=== PATIENT | female | born 1945 | race Caucasian/White ===

== ENCOUNTER → 2018-06-09 11:28 | Outpatient (REF) | payer MEDICARE, SELFPAY ==
[2018-06-09 20:42] LABS: Anion Gap 8.8 mmol/L (3-11); BUN 15 mg/dL (7-18); CO2 29.2 mmol/L (21.0-32.0); CREATININE 0.94 mg/dL (0.55-1.02); Calcium 9.1 mg/dL (8.5-10.1); Chloride 103 mmol/L (98-107); Estimated GFR 58.05 (mL/min/1.73m2); Glucose 93 mg/dL (70-100); Sodium 141 mmol/L (136-145); TSH (W/Ref FT4) 1.83 uIU/mL (0.358-3.74)
== END ==
LOC: NCHCN 11:28
PROVIDERS: PCP Family Medicine; Visit Provider Family Medicine
DX: E03.9 Hypothyroidism, unspecified (principal); I10 Essential (primary) hypertension
CPT/HCPCS: 80048; 84443

== ENCOUNTER 2018-07-14 16:40 | Emergency (ER) | payer MEDICARE, SELFPAY ==
[2018-07-14] VITALS (32 sets, daily range): BP systolic 133–166; BP diastolic 59–85; PULSE 63–81; RESP 10–27; TEMP 36.6–37.1; O2SAT 92–99
--- NOTE | 2018-07-14 16:56 | DI.RAD_ITS ---
SYMPTOM/DIAGNOSIS: PALPITATIONS FRONTAL AND LATERAL CHEST: Comparison is made with 11/21/07. Heart size and pulmonary vasculature are within normal limits. The patient has a pectus excavatum deformity. There are increased lung markings in the lung bases medially. These may in part be due to the pectus deformity. The possibility of an infiltrate cannot be excluded. No effusions or pneumothoraces are identified. The preliminary radiology report questioned a 2.8 cm lesion in the right lung base. This may represent superimposition of soft tissue structures. Degenerative changes are seen in the spine. IMPRESSION: Basilar infiltrates seen medially. This may be related to the patient's pectus deformity. Basilar infiltrate cannot be excluded. Please see the above discussion for complete details.
[2018-07-14 17:32] LABS: Abs Immature Grans 0.01 k/cumm (0.0-0.09); Absolute Basophil Count 0.07 k/cumm (0.0-0.2); Absolute Eosinophil Count 0.25 k/cumm (0.0-0.7); Absolute Lymphocyte Count 2.15 k/cumm (1.2-3.4); Absolute Monocyte Count 0.78 k/cumm (0.11-0.7); Absolute Neutrophil Count 5.65 k/cumm (1.2-6.7); Basophils % 0.8; Eosinophils % 2.8; HCT 42.9 % (36.0-46.0); HGB 14.4 g/dL (12.0-15.5); Immature Grans % 0.1; Lymphocytes % 24.1; Mean Corp. HGB Concentration 33.6 g/dL (32.0-36.0); Mean Corpuscular Volume 89.4 fL (80-95); Monocytes % 8.8; Neutrophils % 63.4; Platelet Count 196 x1000/uL (130-400); RBC Distribution Width 14.2 % (11.7-14.6); White Blood Cell Count 8.91 k/cumm (4.4-10.8)
[2018-07-14 17:34] LABS: ALT 28 U/L (12-78); AST 22 U/L (15-37); Albumin 3.6 g/dL (3.4-5.0); Alkaline Phosphatase 82 U/L (46-116); Anion Gap 8.1 mmol/L (3-11); BUN 23 mg/dL (7-18); Bilirubin, Total 0.8 mg/dL (0.2-1.0); CO2 29.9 mmol/L (21.0-32.0); CREATININE 1.26 mg/dL (0.55-1.02); Calcium 8.8 mg/dL (8.5-10.1); Chloride 101 mmol/L (98-107); Glucose 101 mg/dL (70-100); Magnesium 2.1 mg/dL (1.8-2.4); Potassium 3.6 mmol/L (3.5-5.1); Sodium 139 mmol/L (136-145); Total Protein 7.5 g/dL (6.4-8.2)
[2018-07-14 17:45] LABS: Troponin I < 0.02 ng/mL (0.00-0.06)
[2018-07-14] MEDS: Aspirin 81 MG CHEW 324 MG CH (18:22)
--- NOTE | 2018-07-14 18:42 | DI.VRAD_ITS ---
EXAM: XR Chest, 2 Views CLINICAL HISTORY: 73 years old, female; Signs and symptoms; Other: Per pt felt heart racing; Patient HX: Per pt: [place] heart racing TECHNIQUE: Frontal and lateral views of the chest. COMPARISON: No relevant prior studies available. FINDINGS: Lungs: There are opacities along the heart borders bilaterally which could represent atelectasis or infection. A portion of the right lower lung opacities includes a rounded structure measuring 2.8 cm. This could represent superimposition of structures or a pulmonary lesion. A short term followup recommended. Pleural space: No pneumothorax. Heart: Cardiac shadow within normal limits. Mediastinum: Mediastinal contour is within normal limits. Bones/joints: Skeletal degenerative changes. Upper abdomen: Surgical clips in the right upper quadrant of the abdomen. Other findings: If symptoms remain concerning, consider alternative imaging modalities. IMPRESSION: 1. There are opacities along the heart borders bilaterally which could represent atelectasis or infection. A portion of the right lower lung opacities includes a vague rounded structure measuring 2.8 cm. This could represent superimposition of structures or a pulmonary lesion. Short term followup recommended. 2. Other findings as above. Dictated and Authenticated by: Venessa Loja MD. Ordering:FAY ARGUELLO MD
--- NOTE | 2018-07-14 19:33 | W.ED.GENAD ---
Discharge Plan Disposition Patient Disposition: HOME Condition: Good Discharge Details Chief Complaint: Palpitatns Clinical Impression: Heart palpitations, Lesion of lung Primary Care Provider: Le Thompson ED Provider: Lamine Mcnair Home Meds and New Rx's Prescriptions: No Action fluticasone-salmeterol [Advair Diskus] 1 EACH blister with device 1 puff Inhalation DAILY RF: 0 aspirin [Aspir-81] 81 MG tablet,delayed release (DR/EC) 1 tab PO DAILY RF: 0 levothyroxine [Synthroid] 100 MCG tablet 100 mcg PO DAILY RF: 0 simvastatin 20 MG tablet 20 mg PO DAILY RF: 0 omeprazole 20 MG capsule,delayed release(DR/EC) 20 mg PO DAILY RF: 0 metoprolol tartrate 25 MG tablet 50 mg PO BID RF: 0 cholecalciferol (vitamin D3) 1,000 UNITS tablet 1 tab PO DAILY RF: 0 Xb-H4-bjg-edon-thg-smnf-bor 1 EACH tablet 1,000 mg PO BID RF: 0 sertraline 25 mg Tablet 1 tab PO DAILY RF: 0 Discharge Instructions Instructions: Palpitations (ED) Additional Instructions: Please follow-up on for your scheduled appointment for your Holter monitor. Please follow-up with your primary care provider for reevaluation of the chest lesion noted on x-ray. If you notice any return of your symptoms or any worsening of your symptoms, please return immediately to the emergency department. He noticed any chest pain, arm pain, shortness of breath please return immediately. If you notice any worsening of your symptoms, or any new symptoms such as vomiting, diarrhea, fever, chills, shortness of breath, chest pain, numbness, weakness, or fainting , please return immediately to the emergency department for reevaluation. Please follow up with your primary care provider as soon as possible for reassessment and reevaluation. As always, it was a pleasure participating in your medical care today. Referrals: Le Thompson MD [Primary Care Provider] - Discharge Data Discharge Date/Time-TO BE ENTERED AT DEPARTURE: 07/14/18 19:57 Medical Decision Making This is a 73-year-old female with a past medical history of hypertension, high cholesterol, who is scheduled to have a Holter monitor placed in 3 days. She presents today for palpitations. It lasted 1 minute. It occurred 1 hour prior to arrival. She had associated burning in her left arm which resolved immediately upon the resolution of the palpitations. She has no other associated chest pain, chest heaviness, arm pain, or neck pain. Physical exam demonstrates no significant abnormalities. Patient's laboratory workup demonstrates no acute abnormalities. Patient EKG demonstrates sinus rhythm with no significant arrhythmia or abnormality. Patient's chest x-ray readings per virtual radiology demonstrate there are opacities along the heart borders bilaterally which could represent atelectasis or infection. A portion of the right lower lung opacities include a vague rounded structure measuring 2.8 cm. This could represent superimposition of structures or a pulmonary lesion. Short-term follow-up recommended.Patient's chest x-ray does demonstrate atelectasis, however per on reevaluation the patient denies any cough, fever, or chills and demonstrates no ask Duane abnormalities. I do feel that her symptoms are inconsistent with infection. During a prolonged observation period here in the emergency department she continued to demonstrate no evidence of palpitations, or arrhythmia. With a normal workup, I feel that she can be safely discharged home with close follow-up with her PCP and the administration of her scheduled security monitor later this week. I discussed with her the potential superimposed structure versus coronary lesion, and the need for follow-up and the patient understands. We discussed red flags for which to return the patient understands. I have extensively reviewed the treatment plan and discharge instructions with the patient and their family. I have addressed all patient concerns at this time. The patient and family was made aware of what symptoms to monitor for that would warrant a return to the emergency department. Discussed the plan with the patient and family, they demonstrate verbal understanding and agreement with our assessment and plan at this time. EKG 16: 49 Rate 80, intervals normal, sinus rhythm, no significant ST elevations or depressions. No Q waves. Inverted T wave in V1. No other abnormality HPI General Date/Time Provider Initiated Documentation: 07/14/18 16:54. HPI Narrative: This is a 73-year-old female with a past medical history of palpitations, hyperlipidemia, hypertension, who presents today for palpitations. The patient states that 1 hour prior to arrival she had symptoms of palpitations. It lasted for 1 minute total. She had an associated burning in her left arm during that period. She had fatigue all day, but denies any chest pain, arm pain, neck pain or shoulder pain. She denies any heavy sensation on her chest. Her symptoms completely resolved after that 1 minute episode, she came to the ER for further evaluation. She has a scheduled Holter monitor that is to be placed in 3 days. The patient denies any syncope, headache, exertional dyspnea, or other complaints. She is on metoprolol. She denies any other complaints at this time. She denies any recent pertinent surgeries, pertinent family history, or IV or illicit drug use. Related Data Home Medications Medication Instructions Recorded Confirmed Ae-F3-ujn-nlcc-gfr-cwib-bor 1,000 mg PO BID 03/31/17 07/14/18 aspirin [Aspir-81] 1 tab PO DAILY 03/31/17 07/14/18 cholecalciferol (vitamin D3) 1 tab PO DAILY 03/31/17 07/14/18 fluticasone-salmeterol [Advair 1 puff INHALATION DAILY 03/31/17 07/14/18 Diskus] levothyroxine [Synthroid] 100 mcg PO DAILY 03/31/17 07/14/18 metoprolol tartrate 50 mg PO BID 03/31/17 07/14/18 omeprazole 20 mg PO DAILY 03/31/17 07/14/18 simvastatin 20 mg PO DAILY 03/31/17 07/14/18 sertraline 1 tab PO DAILY 07/14/18 07/14/18 Allergies Allergy/AdvReac Type Severity Reaction Status Date / Time sulfamethoxazole AdvReac Intermediate Skin Rash Unverified 07/14/18 16:53 [From Bactrim] trimethoprim [From Bactrim] AdvReac Intermediate Skin Rash Unverified 07/14/18 16:53 codeine AdvReac Mild Nausea Unverified 07/14/18 16:53 General Stated Complaint: Palpitatns GENEVIEVE: 3 Review of Systems Review of Systems All systems reviewed & are unremarkable except as noted in HPI and below PFSH Social History Smoking/Tobacco Use Status: Never Exam Narrative Exam Narrative: 1.Const: Well-nourished, Well-developed, appearing stated age 2.Eyes: PERRL, no conjunctival injection, and symmetrical lids. 3.ENT: Atraumatic external nose and ears. Moist MM. Neck: Symmetric, trachea midline, No thyromegaly. 4.CVS: +S1/S2, No murmurs or gallops. No irregularities. Peripheral pulses 2+ and equal in all extremities. Brisk capillary refill in all extremities. 5.RESP: Unlabored respiratory effort. Clear to auscultation bilaterally. No wheezes rales or rhonchi 6.GI: Soft, Nontender/Nondistended, No hepatosplenomegaly. No guarding or rebound. 7.MSK: Normocephalic/Atraumatic, Extremities w/o deformity or ttp No cyanosis or clubbing, Normal movement of all extremities 8.Skin: Warm, Dry. No rashes or lesions. 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 Sensation grossly intact, no focal neurologic deficits. 10.Psych: (AAO) x3. Appropriate mood and affect Course Vital Signs Temperature 36.6 C 07/14/18 16:51 Pulse 79 07/14/18 16:51 Respiratory Rate 14 07/14/18 16:51 Blood Pressure 166/70 H 07/14/18 16:51 Pulse Oximetry 99 07/14/18 16:51 Temperature 36.6 C 07/14/18 16:51 Temperature Source Temporal Artery Scan 07/14/18 16:51 Pulse 79 07/14/18 16:51 Respiratory Rate 14 07/14/18 16:51 Respiratory Effort 07/14/18 16:55 Blood Pressure 166/70 H 07/14/18 16:51 Pulse Oximetry 99 07/14/18 16:51 Oxygen Delivery Method Room Air 07/14/18 16:51 Oxygen Flow Rate 0 07/14/18 16:51 Pain Level 0 07/14/18 16:51 Lab/Test Results Lab/Test Results: Laboratory Tests Range/Units 07/14/18 07/14/18 07/14/18 16:50 16:50 16:50 WBC (4.4-10.8) k/cumm 8.91 RBC (4.00-5.20) m/cumm 4.80 Hgb (12.0-15.5) g/dL 14.4 Hct (36.0-46.0) % 42.9 MCV (80-95) fL 89.4 MCH (27.0-33.0) pg 30.0 MCHC (32.0-36.0) g/dL 33.6 RDW (11.7-14.6) % 14.2 Plt Count (130-400) x1000/uL 196 MPV (8.0-11.0) fL 12.0 H Immature Gran % 0.1 Neutrophils % 63.4 Lymphocytes % 24.1 Monocytes % 8.8 Eosinophils % 2.8 Basophils % 0.8 Absolute Neutrophils (1.2-6.7) k/cumm 5.65 Absolute Lymphocytes (1.2-3.4) k/cumm 2.15 Absolute Monocytes (0.11-0.7) k/cumm 0.78 H Absolute Eosinophils (0.0-0.7) k/cumm 0.25 Absolute Basophils (0.0-0.2) k/cumm 0.07 Sodium (136-145) mmol/L 139 Potassium (3.5-5.1) mmol/L 3.6 Chloride (98-107) mmol/L 101 Carbon Dioxide (21.0-32.0) mmol/L 29.9 Anion Gap (3-11) mmol/L 8.1 BUN (7-18) mg/dL 23 H Creatinine (0.55-1.02) mg/dL 1.26 H Estimated GFR/1.73 m2 (mL/min/1.73m2) 41.40 Glucose (70-100) mg/dL 101 H Calcium (8.5-10.1) mg/dL 8.8 Magnesium (1.8-2.4) mg/dL 2.1 Total Bilirubin (0.2-1.0) mg/dL 0.8 AST (15-37) U/L 22 ALT (12-78) U/L 28 Alkaline Phosphatase (46-116) U/L 82 Troponin I (0.00-0.06) ng/mL < 0.02 Total Protein (6.4-8.2) g/dL 7.5 Albumin (3.4-5.0) g/dL 3.6 TSH (0.358-3.74) uIU/mL 1.30
== END 2018-07-14 19:57 | disposition home or self-care (01) ==
PROVIDERS: Emergency Provider Student in an Organized Health Care Education/Training Program; PCP Family Medicine
DX: R00.2 Palpitations (principal); R91.8 Other nonspecific abnormal finding of lung field; I10 Essential (primary) hypertension
CPT/HCPCS: 36415; 80053; 93005; 99285; 71046; 83735; 84443; 84484; 85025; 93010; 99284

== ENCOUNTER 2018-07-17 02:42 | Outpatient (CLI) | payer MEDICARE, SELFPAY | END 2018-07-17 03:02 | PROVIDERS: PCP Family Medicine; Visit Provider Family Medicine | DX: R00.2 Palpitations (principal); I49.1 Atrial premature depolarization; I49.3 Ventricular premature depolarization | CPT/HCPCS: 93225 ==

== ENCOUNTER 2018-07-21 14:49 | Outpatient (CLI) | payer MEDICARE, SELFPAY ==
--- NOTE | 2018-07-23 17:39 | HOLTER_ITS ---
Date of dictation: July 23, 2018 Date of recording: July 17, 2018 Date of analysis: July 21, 2018 Referral: Le Thompson M.D. Indication: Palpitations. Findings: 1. Baseline sinus rhythm, 52-111 bpm, average 65 bpm. 2. Rare PAC, 14/2 days, 1 3-beat SVT run at 130 bpm. 3. Rare PVC, 5/2 days, no VT. 4. No pauses. 5. No symptoms recorded.
== END 2018-07-21 15:09 ==
PROVIDERS: PCP Family Medicine; Visit Provider Family Medicine
DX: R00.2 Palpitations (principal); I49.1 Atrial premature depolarization; I49.3 Ventricular premature depolarization
CPT/HCPCS: 93226

== ENCOUNTER 2018-07-23 12:34 | Outpatient (CLI) | payer MEDICARE, SELFPAY | END 2018-07-23 12:54 | PROVIDERS: PCP Family Medicine; Visit Provider Internal Medicine Cardiovascular Disease | DX: R00.2 Palpitations (principal); I49.1 Atrial premature depolarization; I49.3 Ventricular premature depolarization | CPT/HCPCS: 93227 ==

== ENCOUNTER 2018-09-01 00:57 | Outpatient (CLI) | payer MEDICARE, SELFPAY ==
--- NOTE | 2018-09-01 09:30 | DI.RAD_ITS ---
SYMPTOM/DIAGNOSIS: LUNG NODULE R91.8 CHEST X-RAY: PA, lateral. Comparison 07/14/18. Heart size and pulmonary vasculature are within normal limits. The right lung base appears to have cleared. No infiltrates are seen. No pulmonary nodules are identified. No pleural effusion or pneumothorax is present. Degenerative changes are seen in the spine. There are surgical clips again seen in the right upper quadrant of the abdomen. IMPRESSION: No acute pulmonary process. No evidence of a pulmonary nodule.
== END 2018-09-01 01:17 ==
PROVIDERS: PCP Family Medicine; Visit Provider Family Medicine
DX: R91.8 Other nonspecific abnormal finding of lung field (principal)
CPT/HCPCS: 71046

== ENCOUNTER 2018-09-15 18:32 | Outpatient (REF) | payer MEDICARE, SELFPAY ==
--- NOTE | 2018-09-15 12:06 | SKI_PTH ---
PATIENT: Mary Trevino LOC: [facility] U#:[id number] AGE/SX: 73/F ROOM: RE09/15/[address]: Camilo Peterson DO : 1945 BED: DIS: 09/15/2018 SPEC #: [id number] RECD: 09/15/18 18:50 STATUS: CANDIDA REQ #: [id number] SHANIQUE: 09/15/18 12:[address]: Camilo Peterson DEPT: Surgical Specimen RECD BY: Amairani Colvin ENTERED: 09/15/18 18:50 SP TYPE: SKI OTHR DR: Le Thompson Tissues: 1 - SKIN BIOPSY(SHAVE/PUNCH) Procedures: SKIN LEVEL 4 Comments: [id number]
== END 2018-09-15 18:52 ==
LOC: LBN 18:32
PROVIDERS: PCP Family Medicine; Visit Provider Otolaryngology Otolaryngology/Facial Plastic Surgery
DX: L91.8 Other hypertrophic disorders of the skin (principal); L82.1 Other seborrheic keratosis
CPT/HCPCS: 88305

== ENCOUNTER 2018-10-22 00:30 | Outpatient (CLI) | payer MEDICARE, SELFPAY ==
--- NOTE | 2018-10-22 10:50 | DI.MAMMO_ITS ---
SYMPTOMS/DIAGNOSIS: SCREENING, Z12.31 MAMMOGRAM: Mammograms were interpreted according to the usual protocol including computer analysis with CAD system, tomosynthesis and C view imaging. Comparison is made with exams from 2013 through 2018. The breasts are composed of heterogeneously dense fibroglandular tissue, breast density Category C. No suspicious masses or suspicious microcalcifications are visible. There has been no significant change. IMPRESSION: Category I C, negative mammogram. Yearly screening mammography is recommended. [facility] ASSESSMENT OF FINDINGS: Negative. Category 1. Patient will receive a letter notifying them of these results. Bi-RADS category C. The breasts are heterogeneously dense, which may obscure small masses.
== END 2018-10-22 00:50 ==
PROVIDERS: PCP Family Medicine; Visit Provider Family Medicine
DX: Z12.31 Encounter for screening mammogram for malignant neoplasm of breast (principal)
CPT/HCPCS: 77063; 77067

== ENCOUNTER 2019-01-28 15:38 | Outpatient (REF) | payer MEDICARE, SELFPAY ==
[2019-01-28 20:04] LABS: Anion Gap 7.4 mmol/L (3-11); BUN 16 mg/dL (7-18); CO2 30.6 mmol/L (21.0-32.0); CREATININE 0.94 mg/dL (0.55-1.02); Calcium 9.5 mg/dL (8.5-10.1); Chloride 100 mmol/L (98-107); Estimated GFR 58.05 (mL/min/1.73m2); Glucose 99 mg/dL (70-100); Potassium 4.5 mmol/L (3.5-5.1); Sodium 138 mmol/L (136-145)
[2019-01-28 20:35] LABS: Hemoglobin A1C 6.1 % (4.5-6.2)
== END 2019-01-28 15:58 ==
LOC: NCHCN 15:38
PROVIDERS: PCP Family Medicine; Visit Provider Family Medicine
DX: I10 Essential (primary) hypertension (principal); R73.9 Hyperglycemia, unspecified
CPT/HCPCS: 80048; 83036

== ENCOUNTER 2019-05-27 12:58 | Outpatient (CLI) | payer MEDICARE, SELFPAY ==
--- NOTE | 2019-05-27 13:21 | DI.RAD_ITS ---
SYMPTOM/DIAGNOSIS: RT FOOT PAIN M79.671, RT 1ST MTP PAIN RIGHT FOOT: There is severe degenerative changes of the first MTP joint, worsened when compared with the previous exam. There is mild hallux valgus. The remaining MTP joints are unremarkable. There is spurring at the Achilles insertion on the calcaneus as well as a tiny plantar calcaneal spur. 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
--- NOTE | 2019-05-27 13:21 | DI.RAD_ITS ---
SYMPTOM/DIAGNOSIS: LOW BACK PAIN, M54.5 LUMBAR SPINE: The vertebral bodies are well maintained in height. There are end plate osteophytes throughout. There is narrowing of the L5-S1 disc space. There is slight narrowing of the L4-5 disc space. The remaining disc spaces are well maintained. No spondylolysis or spondylolisthesis is seen. There is calcification in the abdominal aorta which appears normal in diameter. Surgical clips are seen in the right upper quadrant. There is spurring at both S-I joints. IMPRESSION: Degenerative changes, greatest at L5-S1.
== END 2019-05-27 13:18 ==
PROVIDERS: PCP Family Medicine; Visit Provider Family Medicine
DX: M79.671 Pain in right foot (principal); M19.071 Primary osteoarthritis, right ankle and foot; M77.31 Calcaneal spur, right foot; M20.11 Hallux valgus (acquired), right foot; M54.5 Low back pain; M51.36 Other intervertebral disc degeneration, lumbar region; M53.3 Sacrococcygeal disorders, not elsewhere classified
CPT/HCPCS: 72110; 73630

== ENCOUNTER 2019-07-27 08:28 | Outpatient (CLI) | payer MEDICARE, SELFPAY ==
[2019-07-27 15:04] LABS: Hemoglobin A1C 5.9 % (4.5-6.2)
[2019-07-27 15:05] LABS: Anion Gap 14.3 mmol/L (3-11); BUN 16 mg/dL (7-18); CO2 21.7 mmol/L (21.0-32.0); CREATININE 0.95 mg/dL (0.55-1.02); Calcium 8.8 mg/dL (8.5-10.1); Chloride 105 mmol/L (98-107); Estimated GFR 57.19 (mL/min/1.73m2); Glucose 90 mg/dL (70-100); Potassium 4.7 mmol/L (3.5-5.1); Sodium 141 mmol/L (136-145); TSH (W/Ref FT4) 2.68 uIU/mL (0.36-3.74)
== END 2019-07-27 08:48 ==
PROVIDERS: PCP Family Medicine; Visit Provider Family Medicine
DX: E03.9 Hypothyroidism, unspecified (principal); I10 Essential (primary) hypertension; R73.9 Hyperglycemia, unspecified
CPT/HCPCS: 80048; 83036; 84443

== ENCOUNTER 2019-09-10 13:21 | Outpatient (CLI) | payer MEDICARE, SELFPAY ==
[2019-09-10 15:21] LABS: Vitamin D 25 Total 69.8 ng/ml (30-100)
[2019-09-10 15:26] LABS: Vitamin B12 707 pg/mL (193-986)
== END 2019-09-10 13:41 ==
PROVIDERS: PCP Family Medicine; Visit Provider Internal Medicine Sleep Medicine
DX: E55.9 Vitamin D deficiency, unspecified (principal); R53.83 Other fatigue
CPT/HCPCS: 36415; 82306; 82607

== ENCOUNTER 2020-06-06 14:08 | Outpatient (REF) | payer MEDICARE, SELFPAY ==
--- NOTE | 2020-06-06 13:22 | SKI_PTH ---
PATIENT: Mary Trevino LOC: [facility] U#:[id number] AGE/SX: 75/F ROOM: RE06/06/[address]: MAMADOU Guevara : 1945 BED: DIS: 06/06/2020 SPEC #: [id number] RECD: 06/07/20 12:05 STATUS: CANDIDA REPawan #: [id number] SHANIQUE: 06/06/20 13:[address]: Mynor Awan DEPT: Surgical Specimen RECD BY: Amairani Colvin ENTERED: 06/07/20 12:06 SP TYPE: SKI OTHR DR: Le Thompson Tissues: 1 - SKIN BIOPSY(SHAVE/PUNCH) Procedures: SKIN LEVEL 4 Comments: [id number]
== END 2020-06-06 14:28 ==
LOC: LBN 14:08
PROVIDERS: PCP Family Medicine; Visit Provider Physician Assistant
DX: L82.0 Inflamed seborrheic keratosis (principal)
CPT/HCPCS: 88305

== ENCOUNTER 2020-08-01 09:04 | Outpatient (REF) | payer MEDICARE, SELFPAY ==
[2020-08-01 18:40] LABS: HCT 42.4 % (36.0-46.0); HGB 14.1 g/dL (11.2-15.7); MCH 30.1 pg (27.0-33.0); MCHC 33.3 % (32.0-36.0); MCV 90.4 fL (80-95); MPV 12.5 fL (8.0-11.0); Platelet Count 206 10^3/uL (130-400); RBC 4.69 10^6/uL (3.93-5.22); RDW 13.9 % (11.7-14.6); RDW-SD 45.9 fL; WBC 5.87 10^3/uL (4.4-10.8)
[2020-08-01 19:01] LABS: Anion Gap 7.2 mmol/L (3-11); BUN 12 mg/dL (7-18); CO2 30.8 mmol/L (21.0-32.0); CREATININE 0.97 mg/dL (0.55-1.02); Chloride 102 mmol/L (98-107); Estimated GFR 55.69 (mL/min/1.73m2); Ferritin 120 ng/mL (8-252); Glucose 82 mg/dL (74-106); Potassium 4.3 mmol/L (3.5-5.1); Sodium 140 mmol/L (136-145)
== END 2020-08-01 09:24 ==
LOC: NCHCN 09:04
PROVIDERS: PCP Family Medicine; Visit Provider Family Medicine
DX: I10 Essential (primary) hypertension (principal); R73.03 Prediabetes; E78.5 Hyperlipidemia, unspecified; N18.9 Chronic kidney disease, unspecified; E03.9 Hypothyroidism, unspecified
CPT/HCPCS: 80048; 85027; 82728; 84443

== ENCOUNTER 2020-08-30 01:09 | Outpatient (CLI) | payer MEDICARE, SELFPAY ==
--- NOTE | 2020-08-30 | DI.MAMMO_ITS ---
EXAM: MG MAMMO SCREENING CLINICAL HISTORY: SCREENING,Z12.31 TECHNIQUE: Bilateral full field digital CC and MLO mammographic images were obtained with 3D tomosyn thesis and utilizing computer aided detection (CAD). COMPARISON: Available for comparison. FINDINGS: Masses/Architectural Distortion: None seen. Microcalcifications: No suspicious pleomorphic-type are seen. Skin Thickening/Nipple Retraction: None. IMPRESSION: 1. No significant interval change with no specific features of malignancy noted. 2. Unless there is more urgent need, screening mammography is recommended, as per [employer] guidelines. BI-RADS Category 1 - Negative Breast Density - Category C - Heterogeneously dense The mammogram demonstrates the patient's breast tissue is dense. Dense breast tissue is very common a nd is not abnormal but dense breast tissue can make it harder to find cancer on a mammogram. Also, de nse breast tissue may increase their breast cancer risk. This information about the result of the [facility] mogram report was provided to the patient to raise their awareness. Use this report when you speak wi th the patient about their risks for breast cancer, which includes their family history. At that time , you may recommend for more screening tests (Ultrasound or MRI) as they might be useful based on the ir risk. A negative radiographic report should not delay biopsy if a dominant or clinically suspicious mass is present. Up to ten percent of cancers are not identified on mammography. A negative report may reinforce clinical impression. Adenosis and dense breasts may obscure an underlying neoplasm. False positive reports average 6 to 10%. Patient will receive a letter notifying them of these results.
== END 2020-08-30 01:29 ==
PROVIDERS: PCP Family Medicine; Visit Provider Family Medicine
DX: Z12.31 Encounter for screening mammogram for malignant neoplasm of breast (principal)
CPT/HCPCS: 77063; 77067

== ENCOUNTER 2021-01-23 06:48 | Day surgery (SDC) | payer MEDICARE, SELFPAY ==
[2021-01-23 06:50] VITALS: BP 177/81; PULSE 68; RESP 16; TEMP 36; O2SAT 98
[2021-01-23] MEDS: Tropicam./Phenyleph. (1/2.5%) 5 ML BTL OS ×3 (07:19→07:31)
[2021-01-23] MEDS: Lidocaine 2% Jelly 6 ML SYR (08:13)
[2021-01-23] MEDS: Povidone-Iodine Ophth 30 ML BTL (08:14)
[2021-01-23] MEDS: Lidocaine 1% Pres-Free 5 ML VIAL (08:20)
[2021-01-23] MEDS: Trypan Blue 0.06% 0.5 ML SYR (08:20)
[2021-01-23] MEDS: Balanced Salt Soln.-PLUS 500 ML BAG (08:23)
[2021-01-23] MEDS: Duovisc Viscoelastic System EACH 1 EACH (08:23)
[2021-01-23] MEDS: Tetracaine 0.5% 4 ML BTL OS (08:23)
--- NOTE | 2021-01-23 08:43 | PDOC.DSDIS_ITS ---
Discharge Plan Disposition Patient Disposition: HOME Condition: Good Discharge Details Attending Provider: Conner Interiano Primary Care Provider: Le Thompson Home Meds and New Rx's Prescriptions: No Action fluticasone propion-salmeterol [Advair Diskus] 1 EACH blister with device 1 puff Inhalation DAILY RF: 0 aspirin [Aspir-81] 81 MG tablet,delayed release (DR/EC) 1 tab PO DAILY RF: 0 levothyroxine [Synthroid] 100 MCG tablet 100 mcg PO DAILY RF: 0 simvastatin 20 MG tablet 20 mg PO DAILY RF: 0 omeprazole 20 MG capsule,delayed release(DR/EC) 20 mg PO DAILY RF: 0 metoprolol tartrate 25 MG tablet 50 mg PO BID RF: 0 cholecalciferol (vitamin D3) 1,000 UNITS tablet 1 tab PO DAILY RF: 0 sertraline 25 mg Tablet 1 tab PO DAILY RF: 0 famotidine 40 mg Tablet 40 mg PO DAILY RF: 0 magnesium 250 mg Tablet 250 mg PO DAILY RF: 0 fluticasone propionate 50 mcg/actuation [place],Suspension 1 spray INTRANASAL DAILY RF: 0 Discharge Instructions Stand Alone Forms: Post-op Topical Cataract, Iris Mays (DSU) Discharge Orders Discharge Orders: Discharge Order (Routine); Ordered 01/23/21 Ordered By: Conner Interiano DS: Diagnosis Discharge Diagnosis (1) Cortical cataract of left eye: Status: Resolved (2) Nuclear sclerotic cataract of left eye: Status: Resolved
--- NOTE | 2021-01-23 08:44 | ROE_ITS ---
Date of service: 01/23/21 Time of Service: 08:50 Operative Note Operative Note DATE OF PROCEDURE: 01/23/21 PRE-OP DIAGNOSIS: Nuclear/cortical cataract, left eye POST-OP DIAGNOSIS: same PROCEDURE: Cataract extraction using phacoemulsification with intraocular lens implant, left eye, using capsular staining with Vision Blue SURGEON: Conner Interiano ANESTHESIA TYPE: Local By Surgeon and MAC Refer to Anesthesia Record COMPLICATIONS: None Patient was transported to: same day Patient's condition: stable Implants: [employer] / [employer] Tecnis [id number] Indications: Progressive decreased vision due to cataract, left eye, with poor red reflex Procedure Description: CATARACT SURGERY OPERATIVE REPORT PREOPERATIVE DIAGNOSIS: 1. Nuclear/cortical cataract, left eye 2. Poor red reflex secondary to #1 POSTOPERATIVE DIAGNOSIS: Same OPERATION: 1. Cataract extraction using phacoemulsification with posterior chamber intraocular lens implant, left eye. 2. Capsular staining with Vision Blue IOL: IOL [employer]/Model: Tan & Tan / KARLI Tecnis [id number] IOL Power: + 15.5 diopters IOL Serial Number: [id number] Optic Diameter: 6.0 mm Haptic/Overall Diameter: 13.0 mm PHACO INFO: [employer] Vision System with OZil and Active Fluidics Cumulative Dispersed Energy (CDE): 9.08 seconds SURGEON: Conner Interiano MD, TA ANESTHESIA: Monitored [facility] (MAC), with local sub-tenon's anesthetic infiltration COMPLICATIONS: None SPECIMENS: None INDICATIONS FOR PROCEDURE: Patient is a 75-year-old lady with history of diminished visual acuity in her left eye. She is noted to have a significant nuclear and cortical cataract of the left eye. The option of cataract surgery was offered to the patient and she wished to proceed. PROCEDURE: The correct surgical eye was identified and marked as the left eye and the pupil was dilated in the preoperative area using mydriatics and cycloplegics. The dilated pupil size was 8.0 mm. Oral sedation was administered in the form of an Imprimis MKO Melt (midazolam 3mg/ketamine 25mg/ondansetron 2mg). The patient was brought to the operating room where cardiopulmonary monitoring was instituted and surgical time-out was performed, confirming the correct operative eye and IOL power. Topical anesthesia was administered and ophthalmic povidone-iodine 5% was instilled into the conjunctival fornices. Lidocaine gel was applied to the cornea and the adelina-ocular area was prepped with Betadine 10% solution and draped in the usual sterile fashion for intraocular surgery, including an aperture drape. A Tegaderm transparent film dressing was cut in half and used to cover the lashes and lid margins. Care was taken to sequester the lashes and lid margins under the Tegaderm dressing. A lid speculum was placed between the lids of the operative eye and the Jeffrey-Aditi operating microscope was maneuvered into position. Nader scissors were then used to make a conjunctival buttonhole approximately 6mm posterior to the limbus in the inferonasal quadrant. Blunt dissection was carried out to expose bare sclera, and a blunt-tipped sub-tenon?s anesthesia cannula was introduced and passed posteriorly along the globe where non- preserved plain lidocaine was injected into posterior sub-Tenon?s space. A sideport knife was used to make a paracentesis port superiorly/superiortemporally. Intraocular phenylephrine/lidocaine was injected int the anterior chamber.. Air was then injected into the anterior chamber, followed by Vision Blue, which was painted over the anterior capsule and then irrigated out using BSS. The anterior chamber was filled with viscoelastic. A 2.4mm keratome knife was used to create a half-thickness groove at the limbus and then to construct a three-plane near-clear corneal tunnel extending 2.0mm into clear cornea at the 3:00 position. A flap was raised on the anterior capsule and capsulorhexis forceps were used to complete a continuous curvilinear capsulorhexis of 5.5 mm. Balanced salt solution was then used to perform cortical cleaving hydrodissection and nuclear hydrodelineation until the lens could be freely rotated within the capsular bag. The lens nucleus was then disassembled and removed within the capsular bag and iris plane using phacoemulsification. Residual cortical material was removed using the 45-degree angled silicone I/A tip with 0.3mm port. The posterior capsule was carefully polished to remove as much residual lens epithelial cells as safely possible. The capsular bag was then inflated and the anterior chamber deepened with viscoelastic. The lens implant described above was inserted into the capsular bag using the KARLI [employer] Injector. A Kuglen hook was used to dial the IOL into position. Residual viscoelastic was then removed first from posterior to the IOL, then from the anterior chamber using the I/A handpiece. The lens implant was noted to center nicely within the capsular bag. The incisions were stromally hydrated, and the anterior chamber was reformed using BSS. Then 0.5cc of moxifloxacin 1.0mg/ml were injected into the capsular bag and anterior chamber. The incisions were checked with a Weck spear and found to be secure. Several drops of ophthalmic povidone-iodine 5% were then applied to the eye followed by two drops of Imprimis combination prednisolone/moxifloxacin/nepafenac solution. The drapes were removed and a clear plastic protective eye shield was placed over the eye. The patient was then returned to [facility] Surgery in stable condition.
[2021-01-23 09:14] VITALS: BP 121/81; PULSE 61; RESP 16; TEMP 36.3; O2SAT 95
== END 2021-01-23 09:25 | disposition home or self-care (01) ==
PROVIDERS: PCP Family Medicine; Visit Provider Ophthalmology
PROC: (CPT 66982; principal; 2021-01-23 08:30)
DX: H25.12 Age-related nuclear cataract, left eye (principal); H25.012 Cortical age-related cataract, left eye; I10 Essential (primary) hypertension
CPT/HCPCS: 66982; V2632

== ENCOUNTER 2021-02-06 07:54 | Day surgery (SDC) | payer MEDICARE, SELFPAY ==
[2021-02-06 08:22] VITALS: BP 157/83; PULSE 63; RESP 18; TEMP 36; O2SAT 100
[2021-02-06] MEDS: Tetracaine 0.5% 4 ML BTL OD (09:56)
[2021-02-06] MEDS: Balanced Salt Soln.-PLUS 500 ML BAG (09:56)
[2021-02-06] MEDS: Lidocaine 1% Pres-Free 5 ML VIAL (09:57)
[2021-02-06] MEDS: Duovisc Viscoelastic System EACH 1 EACH (09:57)
[2021-02-06] MEDS: Lidocaine 2% Jelly 6 ML SYR (09:58)
[2021-02-06] MEDS: Povidone-Iodine Ophth 30 ML BTL (09:59)
--- NOTE | 2021-02-06 10:15 | PDOC.DSDIS_ITS ---
Discharge Plan Disposition Patient Disposition: HOME Condition: Good Discharge Details Attending Provider: Conner Interiano Primary Care Provider: Le Thompson Home Meds and New Rx's Prescriptions: No Action fluticasone propion-salmeterol [Advair Diskus] 1 EACH blister with device 1 puff Inhalation DAILY RF: 0 aspirin [Aspir-81] 81 MG tablet,delayed release (DR/EC) 1 tab PO DAILY RF: 0 levothyroxine [Synthroid] 100 MCG tablet 100 mcg PO DAILY RF: 0 simvastatin 20 MG tablet 20 mg PO DAILY RF: 0 omeprazole 20 MG capsule,delayed release(DR/EC) 20 mg PO DAILY RF: 0 metoprolol tartrate 25 MG tablet 50 mg PO BID RF: 0 cholecalciferol (vitamin D3) 1,000 UNITS tablet 1 tab PO DAILY RF: 0 sertraline 25 mg Tablet 1 tab PO DAILY RF: 0 famotidine 40 mg Tablet 40 mg PO DAILY RF: 0 magnesium 250 mg Tablet 250 mg PO DAILY RF: 0 fluticasone propionate 50 mcg/actuation [place],Suspension 1 spray INTRANASAL DAILY RF: 0 Discharge Instructions Stand Alone Forms: Post-op Topical Cataract, Iris Mays (DSU) Discharge Orders Discharge Orders: Discharge Order (Routine); Ordered 02/06/21 Ordered By: Conner Interiano DS: Diagnosis Discharge Diagnosis (1) Nuclear sclerotic cataract of right eye: Status: Resolved (2) Cortical cataract of right eye: Status: Resolved
--- NOTE | 2021-02-06 10:16 | W.PM.OP ---
Date of service: 02/06/21 Time of Service: 10:16 Operative Note Operative Note DATE OF PROCEDURE: 02/06/21 PRE-OP DIAGNOSIS: Nuclear/cortical cataract, right eye POST-OP DIAGNOSIS: same PROCEDURE: Cataract extraction using phacoemulsification with intraocular lens implant, right eye SURGEON: Conner Interiano ANESTHESIA TYPE: Local By Surgeon and MAC Refer to Anesthesia Record ESTIMATED BLOOD LOSS: 0 PATHOLOGY: none sent COMPLICATIONS: None Patient was transported to: same day Patient's condition: stable Implants: [employer] / [employer] Tecnis [id number] intraocular lens Indications: Progressive decreased vision due to cataract, right eye Procedure Description: CATARACT SURGERY OPERATIVE REPORT PREOPERATIVE DIAGNOSIS: Nuclear/cortical cataract, right eye POSTOPERATIVE DIAGNOSIS: Same OPERATION: Cataract extraction using phacoemulsification with posterior chamber intraocular lens implant, right eye. IOL: IOL Nursing Clinical Director/Model: [employer] / KARLI Tecnis ZCB00 IOL Power: + 15.5 diopters IOL Serial Number: [id number] Optic Diameter: 6.0mm Haptic/Overall Diameter: 13.0mm PHACO INFO: [employer]ion Vision System with OZil and Active Fluidics Cumulative Dispersed Energy (CDE): 8.4 seconds SURGEON: Conner Interiano MD, TA ANESTHESIA: Monitored Anesthesia Care (MAC), with local sub-tenon's anesthetic infiltration COMPLICATIONS: None SPECIMENS: None INDICATIONS FOR PROCEDURE: The patient is a 75-year-old lady with history of diminished visual acuity in both eyes secondary to the development of bilateral nuclear and cortical cataract. PROCEDURE: The correct surgical eye was identified and marked as the right eye and the pupil was dilated in the preoperative area using mydriatics and cycloplegics. The dilated pupil size was 8.0 mm. Oral sedation was administered in the form of an Imprimis MKO Melt (midazolam 3mg/ketamine 25mg/ondansetron 2mg). The patient was brought to the operating room where cardiopulmonary monitoring was instituted and surgical time-out was performed, confirming the correct operative eye and IOL power. Topical anesthesia was administered and ophthalmic povidone-iodine 5% was instilled into the conjunctival fornices. Lidocaine gel was applied to the cornea and the adelina-ocular area was prepped with Betadine 10% solution and draped in the usual sterile fashion for intraocular surgery, including an aperture drape. A Tegaderm transparent film dressing was cut in half and used to cover the lashes and lid margins. Care was taken to sequester the lashes and lid margins under the Tegaderm dressing. A lid speculum was placed between the lids of the operative eye and the Jeffrey-Aditi operating microscope was maneuvered into position. Nader scissors were then used to make a conjunctival buttonhole approximately 6mm posterior to the limbus in the inferonasal quadrant. Blunt dissection was carried out to expose bare sclera, and a blunt-tipped sub-tenon?s anesthesia cannula was introduced and passed posteriorly along the globe where non-preserved plain lidocaine was injected into posterior sub-Tenon?s space. A sideport knife was used to make a paracentesis port inferiortemporally. Intraocular phenylephrine/lidocaine was injected into the anterior chamber. The anterior chamber was then filled with viscoelastic. A 2.4mm keratome knife was used to create a half-thickness groove at the limbus and then to construct a three-plane near-clear corneal tunnel extending 2.0mm into clear cornea in the superiortemporal position. . A flap was raised on the anterior capsule and capsulorhexis forceps were used to complete a continuous curvilinear capsulorhexis of 5.5 mm. Balanced salt solution was then used to perform cortical cleaving hydrodissection and nuclear hydrodelineation until the lens could be freely rotated within the capsular bag. The lens nucleus was then disassembled and removed within the capsular bag and iris plane using phacoemulsification. Residual cortical material was removed using the I/A handpiece. The posterior capsule was carefully polished to remove as much residual lens epithelial cells as safely possible. The capsular bag was then inflated and the anterior chamber deepened with viscoelastic. The lens implant described above was inserted into the capsular bag using the KARLI Cantwell Injector. A Kuglen hook was used to dial the IOL into position. Residual viscoelastic was then removed first from posterior to the IOL, then from the anterior chamber using the I/A handpiece. The lens implant was noted to center nicely within the capsular bag. The incisions were stromally hydrated, and the anterior chamber was reformed using BSS. Then 0.5cc of moxifloxacin 1.0mg/ml were injected into the capsular bag and anterior chamber. The incisions were checked with a Weck spear and found to be secure. Several drops of ophthalmic povidone-iodine 5% were then applied to the eye followed by two drops of Imprimis combination prednisolone/moxifloxacin/nepafenac solution. The drapes were removed and a clear plastic protective eye shield was placed over the eye. The patient was then returned to Same Day Surgery in stable condition.
[2021-02-06 10:44] VITALS: BP 138/82; PULSE 66; RESP 16; TEMP 36.4; O2SAT 98
== END 2021-02-06 10:50 | disposition home or self-care (01) ==
PROVIDERS: PCP Family Medicine; Visit Provider Ophthalmology
PROC: (CPT 66984; principal; 2021-02-06 10:30)
DX: H25.11 Age-related nuclear cataract, right eye (principal); H25.011 Cortical age-related cataract, right eye
CPT/HCPCS: 66984; V2632

== ENCOUNTER 2021-04-14 10:56 | Outpatient (CLI) | payer MEDICARE, SELFPAY ==
--- NOTE | 2021-04-14 10:45 | DI.RAD_ITS ---
Exam(s) XR FINGER RT MIDDLE EXAM: XR FINGER RT MIDDLE CLINICAL HISTORY: cyst in hand. TECHNIQUE: 2D digital imaging was performed. COMPARISON: No exams were available for comparison FINDINGS: BONES: No acute fracture is present. No bony destructive lesion is seen. JOINTS: No dislocation present. There are degenerative changes, with joint space narrowing seen grea test in the distal interphalangeal joint. There is periarticular spurring and small subchondral cyst s. Milder degenerative changes are seen in the proximal interphalangeal joint. Degenerative changes are also noted in the interphalangeal joints of the adjacent fingers. SOFT TISSUE: Soft tissue swelling is seen at the nail bed. No calcification or foreign body is seen. . IMPRESSION: degenerative changes, greatest at the distal interphalangeal joint of the middle finger. DATA REPOSITORY: RADIATION DOSE DELIVERED:
== END 2021-04-14 10:57 | disposition home or self-care (01) ==
LOC: DIORS 10:56
PROVIDERS: PCP Family Medicine; Referring Provider Family Medicine; Visit Provider Student in an Organized Health Care Education/Training Program
DX: M67.441 Ganglion, right hand (principal); M71.341 Other bursal cyst, right hand; M19.041 Primary osteoarthritis, right hand
CPT/HCPCS: 99213; 73140

== ENCOUNTER 2021-05-02 06:08 | Day surgery (SDC) | payer MEDICARE, SELFPAY ==
[2021-05-02 06:30] VITALS: BP 131/73; PULSE 57; RESP 16; TEMP 36.3; O2SAT 95
--- NOTE | 2021-05-02 07:19 | PDOC.DSDIS_ITS ---
Discharge Plan Disposition Patient Disposition: HOME Condition: Good Discharge Details Reason For Visit: RMF Mucous Cyst Attending Provider: Don Panda Primary Care Provider: Le Thompson Home Meds and New Rx's Prescriptions: Continued fluticasone propion-salmeterol [Advair Diskus] 1 EACH blister with device 1 puff Inhalation DAILY RF: 0 aspirin [Aspir-81] 81 MG tablet,delayed release (DR/EC) 1 tab PO DAILY RF: 0 levothyroxine [Synthroid] 100 MCG tablet 100 mcg PO DAILY RF: 0 simvastatin 20 MG tablet 20 mg PO DAILY RF: 0 omeprazole 20 MG capsule,delayed release(DR/EC) 20 mg PO DAILY RF: 0 metoprolol tartrate 25 MG tablet 50 mg PO BID RF: 0 cholecalciferol (vitamin D3) 1,000 UNITS tablet 1 tab PO DAILY RF: 0 sertraline 25 mg Tablet 1 tab PO DAILY RF: 0 famotidine 40 mg Tablet 40 mg PO DAILY RF: 0 fluticasone propionate 50 mcg/actuation [place],Suspension 1 spray INTRANASAL DAILY RF: 0 magnesium 250 mg tablet 1,000 mg PO DAILY RF: 0 Discharge Instructions Additional Instructions: Dr. Panda's Discharge Instructions Activity: You may use your fingers for light activity. You should limit any excessive motion or forceful gripping until the sutures have been removed. Dressings: You should keep the initial surgical dressing in place for at least 2 days. You may remove your dressings and get the wound wet after 2 days. You should keep the dressings and the wound clean at all times. You may apply a bandaid to keep the wound covered the sutures are removed. Medications: - You should take Tylenol and Ibuprofen around the clock as prescribed or per optimization analyst's recommendations. Follow-up: 7-10 days for wound check and suture removal. Referrals: Don aPnda MD [ [facility] STAFF PHYSICIAN] - Remove Dressings/Wound Care:: 48 hours Shower/Bathe:: 48 hours Diet:: As Tolerated Discharge Orders Discharge Orders: Discharge Order (Routine); Ordered 05/02/21 Ordered By: Don Panda DS: Diagnosis Discharge Diagnosis (1) Mucoid cyst of joint: Status: Acute
[2021-05-02] MEDS: Sodium Bicarbonate 50 MEQ/50 ML VIAL (07:26)
[2021-05-02 07:45] VITALS: BP 146/70; PULSE 59; RESP 16; TEMP 36.3; O2SAT 97
--- NOTE | 2021-05-02 09:43 | ROE_ITS ---
Date of service: 05/02/21 Time of Service: 07:43 Operative Note Operative Note DATE OF PROCEDURE: 05/02/21 PRE-OP DIAGNOSIS: Right Middle Finger Mucous Cyst POST-OP DIAGNOSIS: same PROCEDURE: Mucous Cyst Excision - Right Middle Finger SURGEON: Don Panda ANESTHESIA TYPE: Local By Surgeon Refer to Anesthesia Record ESTIMATED BLOOD LOSS: 5 PATHOLOGY: none sent COMPLICATIONS: None Patient was transported to: same day Patient's condition: stable Indications: I have seen Mary in clinic for symptoms of a digital mucous cyst. The mass persisted and caused pain to direct contact and with use. The diagnosis of a mucous cyst was made. The symptoms had not responded to conservative measures. I discussed cyst excision with the patient. I reviewed the risks of the procedure to include, but not limited to, bleeding, infection, pain, stiffness, incomplete release, damage to nerves or vessels, continued catching, recurrence. Despite these risks, the patient elected to proceed. Findings: The location of a previous cyst was debrided with a small inflated stalk removed arising from the DIP joint. The cyst and its capsule was removed and an arthrotomy at the cyst location performed. Procedure Description: Mary was greeted in the preoperative holding area where the correct side was identified and marked. The consent was reviewed with the patient and signed. All questions were answered. Mary was taken back to the operating room. The patient was placed into the supine position on the operating room table with the right arm on an arm board. All bony prominences were well padded. No prophylactic antibiotics were a dministered since this was a clean, elective hand surgical case. The right arm was then prepped with Chloraprep and draped in a standard fashion with stockinette and extremity drape. A timeout to confirm correct identity, side and site, procedure, allergies, anesthesia, and medical concerns was performed. A digital block was then performed using 1% lidocaine with epinephrine and buffered with sodium bicarbonate. This was allowed time to set up completely and was tested before proceeding with the case. A longitudinal incision was then made overlying the cyst. The skin was incised sharply. Full-thickness flaps were then elevated to expose the cyst. The cyst capsule was difficult to identify given the cyst was deflated. However, tissue in this area was debrided. There was a stalk identified towards dianelys DIP joint and this was then removed with a rongeur. Using the rongeur and a [place] I was able to penetrate into the DIP joint creating a small arthrotomy from the origin of the mucous cyst. The finger was irrigated and once again checked to make sure that all components of the cyst were removed. The skin was then closed using a #4-0 nylon in interrupted fashion. The finger was dressed with Xeroform, 4 x 4, conform dressing. The patient tolerated the procedure well and was returned to the Same Day Surgery area in a stable condition suffering no known complication.
== END 2021-05-02 08:14 | disposition home or self-care (01) ==
LOC: DSU 06:09
PROVIDERS: PCP Family Medicine; Visit Provider Student in an Organized Health Care Education/Training Program
PROC: (CPT 26160; principal; 2021-05-02 07:30)
DX: M67.441 Ganglion, right hand (principal)
CPT/HCPCS: 26160

== ENCOUNTER → 2021-05-11 09:25 | Outpatient (BNVA) | payer MEDICARE, SELFPAY | PROVIDERS: PCP Family Medicine; Referring Provider Family Medicine | DX: Z47.89 Encounter for other orthopedic aftercare (principal); M71.341 Other bursal cyst, right hand ==

== ENCOUNTER 2021-08-03 19:44 | Outpatient (REF) | payer MEDICARE, SELFPAY ==
[2021-08-03 19:37] LABS: Anion Gap 6.8 mmol/L (3-11); BUN 18 mg/dL (7-18); CO2 28.2 mmol/L (21.0-32.0); Calcium 8.9 mg/dL (8.5-10.1); Chloride 104 mmol/L (98-107); Estimated GFR 53.62 (mL/min/1.73m2); Glucose 100 mg/dL (74-106); Potassium 4.7 mmol/L (3.5-5.1); Sodium 139 mmol/L (136-145); TSH (W/Ref FT4) 2.16 uIU/mL (0.36-3.74)
== END 2021-08-03 19:45 | disposition home or self-care (01) ==
LOC: NCHCN 19:44
PROVIDERS: PCP Family Medicine; Visit Provider Family Medicine
DX: R73.03 Prediabetes (principal); E03.9 Hypothyroidism, unspecified; N18.30 Chronic kidney disease, stage 3 unspecified; E78.5 Hyperlipidemia, unspecified; G25.81 Restless legs syndrome
CPT/HCPCS: 80048; 83036; 84443

== ENCOUNTER 2021-09-29 11:24 | Outpatient (REF) | payer MEDICARE, SELFPAY ==
[2021-09-29 15:02] LABS: COMMENT (LAB VIEW ONLY) 44.62 mg/dL; Microalb ug/mg Crea 9.9 ug/mg Cr
== END 2021-09-29 11:25 | disposition home or self-care (01) ==
LOC: NCHCN 11:24
PROVIDERS: PCP Family Medicine; Visit Provider Family Medicine
DX: N18.30 Chronic kidney disease, stage 3 unspecified (principal)
CPT/HCPCS: 82043; 82570

== ENCOUNTER 2021-11-02 02:05 | Outpatient (CLI) | payer MEDICARE, SELFPAY ==
--- NOTE | 2021-11-02 08:20 | DI.MAMMO_ITS ---
Exam(s) MAMMO SCREENING EXAM: MAMMO SCREENING CLINICAL HISTORY: SCREENING, Z12.31 TECHNIQUE: Mammograms were interpreted according to the usual protocol including computer analysis w ZALORA CAD system, tomosynthesis and C-view imaging. COMPARISON: 2011 through 2019 FINDINGS: The breasts are composed of heterogeneously dense fibroglandular densities, Breast Density category C . No suspicious masses or suspicious microcalcifications are seen. No skin thickening or abnormal axillary lymph nodes are seen. There has been no significant change from prior exams. IMPRESSION: BI-RADS Category 1, Negative mammogram. Yearly screening mammography is recommended. Breast Density Category C, heterogeneously Dense. The mammogram demonstrates the patient's breast tissue is dense. Dense breast tissue is very common a nd is not abnormal but dense breast tissue can make it harder to find cancer on a mammogram. Also, de nse breast tissue may increase breast cancer risk. This information about the result of the mammogram report was provided to the patient to raise their awareness. Use this report when you speak with the patient about their risks for breast cancer, which includes their family history. At that time, you may recommend additional screening tests (Ultrasound or MRI) as they might be useful based on their r isk. A negative radiographic report should not delay biopsy if a dominant or clinically suspicious mass is present. Up to ten percent of cancers are not identified on mammography. A negative report may reinforce clinical impression. Adenosis and dense breasts may obscure an underlying neoplasm. False positive reports average 6 to 10%.
--- NOTE | 2021-11-02 08:30 | DI.DEXA_ITS ---
Exam(s) XR DEXA BONE DENSITY W/WO JLUIS EXAM: XR DEXA BONE DENSITY W/WO JLUIS CLINICAL HISTORY: MENOPAUSAL, Z78.0,screening for osteoporosis TECHNIQUE: [employer] Horizon C densitometer COMPARISON: CR XR lumbar spine complete from 05/27/2019 DEXA 2004, 2008 and 2016 FINDINGS: Lateral view of the thoracic and lumbar spine shows no evidence of compression fractures. Bone mineral density measurements of the lumbar spine correspond to a total T-score of 1.6, in the no rmal range. 8.6 percent increase from 2016. 11.4 percent increase from 2004. Bone mineral density measurements of the left hip correspond to a total T-score of 0. The femoral n susana T-score is -0.4, in the normal range. 6.3 percent decrease from 2016. 9.1 percent decrease fro 2004.. The left forearm bone mineral density measurements correspond to a T-score of the distal 3rd of -0.4, in the normal range. Not significantly changed from priors . IMPRESSION: Normal bone mineral density of the lumbar spine, left hip and left forearm.
== END 2021-11-02 02:25 ==
PROVIDERS: PCP Family Medicine; Visit Provider Family Medicine
DX: Z78.0 Asymptomatic menopausal state (principal); Z13.820 Encounter for screening for osteoporosis; Z12.31 Encounter for screening mammogram for malignant neoplasm of breast
CPT/HCPCS: 77063; 77067; 77080

== ENCOUNTER 2022-03-06 18:20 | Outpatient (REF) | payer MEDICARE, SELFPAY ==
[2022-03-06 22:45] LABS: TSH (W/Ref FT4) 1.19 uIU/mL (0.36-3.74)
== END 2022-03-06 18:21 | disposition home or self-care (01) ==
LOC: NCHCN 18:20
PROVIDERS: PCP Family Medicine; Visit Provider Family Medicine
DX: E03.9 Hypothyroidism, unspecified (principal)
CPT/HCPCS: 84443

== ENCOUNTER 2022-09-24 22:05 | Outpatient (REF) | payer MEDICARE, SELFPAY ==
[2022-09-24 22:06] LABS: Hemoglobin A1C 5.9 % (<5.7)
[2022-09-24 22:14] LABS: Anion Gap 4.3 mmol/L (3-11); BUN 15 mg/dL (7-18); CO2 32.7 mmol/L (21.0-32.0); Calcium 9.2 mg/dL (8.5-10.1); Calculated LDL 116 mg/dL (<100); Chloride 102 mmol/L (98-107); Cholesterol 211 mg/dL (<200); Estimated GFR 57.31 (mL/min/1.73m2); Glucose 98 mg/dL (74-106); HDL Cholesterol 72 mg/dL (40-60); Potassium 4.7 mmol/L (3.5-5.1); Sodium 139 mmol/L (136-145); TSH (W/Ref FT4) 1.87 uIU/mL (0.36-3.74); Triglyceride 118 mg/dL (<150)
== END 2022-09-24 22:06 | disposition home or self-care (01) ==
LOC: NCHCN 22:05
PROVIDERS: PCP Family Medicine; Visit Provider Family Medicine
DX: I10 Essential (primary) hypertension (principal); R73.03 Prediabetes; E03.9 Hypothyroidism, unspecified; E78.5 Hyperlipidemia, unspecified
CPT/HCPCS: 80048; 80061; 83036; 84443

== ENCOUNTER 2022-11-08 03:02 | Outpatient (CLI) | payer MEDICARE, SELFPAY ==
--- NOTE | 2022-11-08 | DI.MAMMO_ITS ---
Exam(s) MAMMO SCREENING EXAM: MAMMO SCREENING CLINICAL HISTORY: SCREENING, Z12.31. TECHNIQUE: Bilateral full field digital CC and MLO mammographic images were obtained with 3D tomosyn thesis and utilizing computer aided detection (CAD). COMPARISON: Prior mammograms were reviewed. FINDINGS: There has been no significant change in the appearance and distribution of the fibroglandular tissue which is again noted dense bilaterally.. There are no CAD designations. There are no abuse new spiculated masses nor malignant appearing microcalcification groups. There is no significant architectural distortion nor skin thickening-retraction. IMPRESSION: Dense bilateral fibroglandular tissue. No obvious radiographic evidence of malignancy nor significan t change compared to prior mammograms. BI-RADS Category 1 - Negative Breast Density - Category C - Heterogeneously dense Breast density Category C or D implies that the patient has dense breast tissue. Dense breast tissue can make it harder to find cancer on a mammogram. Dense breast tissue is also associated with an incr eased risk of breast cancer. This information about the result of the mammogram report was provided to the patient to raise their awareness. Use this report when you speak with the patient about their risks for breast cancer, which includes their family history. At that time, you may recommend additional screening tests (Ultrasoun d or MRI) as these tests may add significant information. A negative radiographic report should not delay biopsy if a dominant or clinically suspicious mass is present. Up to ten percent of cancers are not identified on mammography. A negative report may reinforce clinical impression. Adenosis and dense breasts may obscure an underlying neoplasm. False positive reports average 6 to 10%. Patient will receive a letter notifying them of these results.
== END 2022-11-08 03:22 ==
LOC: DI 03:02
PROVIDERS: PCP Family Medicine; Visit Provider Family Medicine
DX: Z12.31 Encounter for screening mammogram for malignant neoplasm of breast (principal)
CPT/HCPCS: 77063; 77067

== ENCOUNTER 2023-01-24 11:55 | Outpatient (CLI) | payer MEDICARE, SELFPAY ==
--- NOTE | 2023-01-24 11:45 | DI.RAD_ITS ---
Exam(s) XR HEEL LT OS CALCIS EXAM: XR HEEL LT OS CALCIS CLINICAL HISTORY: eval L heel pain/prominence. TECHNIQUE: 2D digital imaging was performed. COMPARISON: No exams were available for comparison FINDINGS: Two dedicated views of the calcaneus including lateral view and Gutierrez axial view: No evidence of calcaneus fracture. No osseous lesions. Osteophytic density noted at the insertional aspect the Achilles tendon which appears somewhat widened. Small inferior calcaneal spur noted. Th ere is also a slight prominent hump on the posterior superior aspect of the calcaneus. No evidence of osseous tarsal coalition. No degenerative changes in the subtalar joint. IMPRESSION: As above. Correlation with any clinical findings of Bishop's syndrome recommended. DATA REPOSITORY: RADIATION DOSE DELIVERED:
== END 2023-01-24 11:56 | disposition home or self-care (01) ==
LOC: DIORS 11:55
PROVIDERS: PCP Family Medicine; Referring Provider Physical Therapist; Visit Provider Student in an Organized Health Care Education/Training Program
DX: M76.62 Achilles tendinitis, left leg (principal); M77.32 Calcaneal spur, left foot; M25.572 Pain in left ankle and joints of left foot
CPT/HCPCS: 99213; 73650

== ENCOUNTER → 2023-03-25 09:59 | Outpatient (BNVA) | payer MEDICARE, SELFPAY | PROVIDERS: PCP Family Medicine; Referring Provider Family Medicine; Visit Provider Student in an Organized Health Care Education/Training Program | DX: M65.28 Calcific tendinitis, other site (principal); M92.62 Juvenile osteochondrosis of tarsus, left ankle | CPT/HCPCS: 99213 ==

== ENCOUNTER 2023-05-08 07:07 | Day surgery (SDC) | payer MEDICARE, SELFPAY ==
[2023-05-08] VITALS (8 sets, daily range): BP systolic 108–170; BP diastolic 55–88; PULSE 56–61; RESP 13–19; TEMP 36.2–36.7; O2SAT 88–100; BMI 31.2
--- NOTE | 2023-05-08 07:00 | ANES.PREOP_ITS ---
General Info Date of Service Date Performed: 05/08/23 Height: 5 ft Weight: 72.575 kg Body Mass Index (BMI): 31.2 Surgical Procedure: Operation Date: 05/08/23 09:40 Proposed Procedure Side Surgeon p Ankle Achilles Tendon Debridement & Bishop Release Left Don Panda MD Meds Allergies and Home Medications Allergies Allergy/AdvReac Type Severity Reaction Status Date / Time sulfamethoxazole Allergy Intermediate Skin Rash Verified 05/08/23 07:28 [From Bactrim] trimethoprim [From Bactrim] Allergy Intermediate Skin Rash Verified 05/08/23 07:28 codeine AdvReac Mild Nausea Verified 05/08/23 07:28 Home Medication Medication Instructions Recorded cholecalciferol (vitamin D3) 25 1 tab PO DAILY 03/31/17 mcg (1,000 unit) tablet fluticasone 250 mcg-salmeterol 50 1 puff inhalation DAILY 03/31/17 mcg/dose blistr powdr for inhalation (Advair Diskus) levothyroxine 100 mcg tablet 100 mcg PO DAILY 03/31/17 (Synthroid) metoprolol tartrate 25 mg tablet 50 mg PO BID 03/31/17 omeprazole 20 mg capsule,delayed 20 mg PO DAILY 03/31/17 release simvastatin 20 mg tablet 20 mg PO DAILY 03/31/17 sertraline 25 mg tablet 1 tab PO DAILY 07/14/18 famotidine 40 mg tablet 40 mg PO DAILY 01/20/21 fluticasone propionate 50 1 spray intranasal DAILY 01/20/21 mcg/actuation nasal spray,suspension magnesium 250 mg tablet 1,000 mg PO DAILY 04/14/21 acetaminophen 500 mg tablet 500 mg PO Q6H PRN pain #60 tabs 05/08/23 hydrocodone 5 mg-acetaminophen 325 1 tab PO Q6H PRN severe pain #6 05/08/23 mg tablet tabs ibuprofen 600 mg tablet 600 mg PO TID PRN pain #60 tabs 05/08/23 Current Visit Medications: Current Medications Generic Name Dose Route Start Last Admin Trade Name Freq PRN Reason Stop Dose Admin Ringer's Solution 1,000 mls @ 80 mls/hr 05/08/23 06:00 IV 06/06/23 23:59 INFUSION RADHAMES Cefazolin Sodium/Dextrose 2 gm in 50 mls @ 100 mls/hr 05/08/23 06:00 Ancef Duplex IVPB 06/06/23 23:59 PREOP RADHAMES IV Miscellaneous Supplies 1 each 05/08/23 06:00 Iv Access IV 06/06/23 23:59 DIRECTED RADHAMES Sodium Chloride 0 ml 05/08/23 06:00 Normal Saline Flush 10 Ml Syr IV 06/06/23 23:59 PRN PRN Sodium Chloride 0 ml 05/08/23 06:00 Normal Saline 10 Ml Vial IJ 06/06/23 23:59 DIRECTED PRN Sterile Water 0 ml 05/08/23 06:00 Water,Injection,Sterile 10 Ml Vial IJ 06/06/23 23:59 DIRECTED PRN PFSH Active Problems Active Problems: Problem Status Onset Code Neoplasm of bone, soft tissue, or skin D49.2 Sensorineural hearing loss of both ears H90.3 Cortical cataract of left eye H26.9 Nuclear sclerotic cataract of left eye H25.12 Cortical cataract of right eye H26.9 Nuclear sclerotic cataract of right eye H25.11 Myxoid cyst M71.30 Mucoid cyst of joint M67.40 Left Achilles tendinitis M76.62 Calcific Achilles tendinitis of left lower extremity 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 Thompson Thyroid nodule Tinnitus Surgical History Surgical History History of colonoscopy History of lung biopsy Hx of cataract surgery Bilateral; lens implants Hx of cholecystectomy Tobacco Smoking/Tobacco Use Status: Never Alcohol Alcohol Intake: current Alcohol intake frequency: a few times a week Alcohol type: hard liquor Substance Use Substance use: Never Substance use type: does not use Vital Signs and Lab Results Vital Signs Most Recent Vital Signs in EMR: Temp Pulse Resp BP Pulse Ox 36.4 C L 61 19 170/81 H 98 05/08/23 07:18 05/08/23 07:18 05/08/23 07:18 05/08/23 07:18 05/08/23 07:18 Lab Results Blood Type / Crossmatch: No Data to Display Complete Blood Count: No Data to Display Complete Metabolic Panel: No Data to Display Liver Function Panel: No Data to Display Coagulation Panel: No Data to Display Cardiac Panel: No Data to Display Arterial Blood Gas: No Data to Display Venous Blood Gas: No Data to Display Pancreas Panel: No Data to Display Thyroid Panel: No Data to Display Infectious Disease: No Data to Display Blood Cultures: No Data to Display Toxicology Panel: No Data to Display Anesthesia Assessment and Plan Anesthesia History Personal History: No History of Anesthesia Complications Family History: No Family History of Anesthesia Complications Exercise Tolerance Exercise Tolerance: Metabolic Equivalents>4 Cardiac & Pulmonary Exam Cardiac Exam: Normal S1/S2 Heart Sounds Pulmonary Exam: Clear Bilateral Breath Sounds Implantable Cardiac Device Does patient have a Pacemaker or an ICD?: No Airway Exam Known Difficult Airway: No Mallampati Class: 4 Mouth Opening: Normal (> 3cm) Thyromental Distance: Greater than 3 cm Neck Range of Motion: Limited ROM Neck Circumference: Normal Teeth Condition: Normal Dentition and Removable Dentures/Plates Upper ASA Classification ASA Score: ASA 2 Emergency Case?: No NPO Status NPO Status: NPO Clears >2 hours, Solids >8 hours Anesthesia Plan Resuscitation Status: Full Code Anesthesia Technique: General Anesthesia Airway Planned: Endotracheal Tube Monitors Used: Standard Monitors Preoperative Comments:: 78 yo female for Achilles debridement. Sig PMHx: HTN/SVT (metoprolol), JUDE, hypersensitivity pneumonitis (many years ago both her and her , unknown exposure, since resolved), GERD (listed, but denies, has not used omeprazole in a while), CKDIII, hypothyroid (levot hyroxine), PreDM, never smoker, occ etOH. Plan: GAETT, rescue block if needed.
--- NOTE | 2023-05-08 07:20 | PDOC.DSDIS_ITS ---
Date of service: 05/08/23 Time of Service: 07:54 Discharge Plan Disposition Patient Disposition: Home Condition: Good Discharge Details Reason For Visit: Left Achilles tendinitis Attending Provider: Don Panda Primary Care Provider: Le Thompson Home Meds and New Rx's Prescriptions: New acetaminophen 500 mg tablet 500 mg PO Q6H PRN (Reason: pain) Qty: 60 2RF hydrocodone-acetaminophen 5-325 mg tablet 1 tab PO Q6H PRN (Reason: severe pain) Qty: 6 0RF Rx Instructions: Take one tablet up to every 6 hours as needed for severe postoperative pain ibuprofen 600 mg tablet 600 mg PO TID PRN (Reason: pain) Qty: 60 0RF Continued fluticasone propion-salmeterol [Advair Diskus] 1 EACH blister with device 1 puff Inhalation DAILY levothyroxine [Synthroid] 100 MCG tablet 100 mcg PO DAILY simvastatin 20 MG tablet 20 mg PO DAILY omeprazole 20 MG capsule,delayed release(DR/EC) 20 mg PO DAILY metoprolol tartrate 25 MG tablet 50 mg PO BID cholecalciferol (vitamin D3) 1,000 UNITS tablet 1 tab PO DAILY sertraline 25 mg Tablet 1 tab PO DAILY famotidine 40 mg Tablet 40 mg PO DAILY fluticasone propionate 50 mcg/actuation [place],Suspension 1 spray INTRANASAL DAILY magnesium 250 mg tablet 1,000 mg PO DAILY Discharge Instructions Additional Instructions: Achilles Debridement Discharge Instructions Activity: You are NON WEIGHT BEARING.? You should keep the leg elevated as much as possible.? You may move your hip and knee.? You may rest the foot on the ground but do not step on it.? Spend time with the foot elevated and on your stomach. Dressings:?You should keep your splint clean and dry.? Do NOT get wet or dirty.? If you have issues with your splint, please call the office at [phone] or the hospital after hours. Medications: - You have been prescribed a stronger narcotic, Hydrocodone, for breakthrough pain. - You may take ibuprofen and acetaminophen as prescribed. Follow-up: 2 weeks Equipment/Supplies: Non-Weight Bearing Crutches and Splint Activity:: Elevate Remove Dressings/Wound Care:: Do Not Remove Shower/Bathe:: Cover Diet:: As Tolerated Discharge Orders Discharge Orders: Discharge Order (Routine); Ordered 05/08/23 Ordered By: Francheska Fox
[2023-05-08] MEDS: Lactated Ringers 1,000 ML 80 ML IV (07:40)
--- NOTE | 2023-05-08 07:49 | HPE_ITS ---
I interviewed and examined the patient with Francheska Fox PA-C. I agree with the documentation as above. The assessment and plan were formulated with my direct involvement. Esther has had ongoing symptoms from calcific tendinitis about her left Achilles at its insertion along with a Bishop's deformity. She has failed nonoperative options and is here today for Achilles debridement and Bishop resection. I once again reviewed that surgery with her. I discussed the risk to include bleeding, infection, pain, stiffness, wound healing d ifficulties, failure of tendon repair, persistent swelling, blood clot. Despite these risks, she elects to proceed. Don Panda MD FAAOS [facility] Date of service: 05/08/23 Time of Service: 07:53 Assessment and Plan Assessment and plan (1) Bishop's deformity of left heel: Status: Acute (2) Calcific Achilles tendinitis of left lower extremity: Status: Acute Assessment and plan: Plan: She was screened by the nursing staff to have no symptoms or red flags for possible Covid-19 infection. Educated patient on surgery covering surgical technique, recovery process, benefits and risks including but not limited to risk of infection, blood clot, damage to soft tissue/blood vessels/nerves in detail. After discussion patient gives verbal understanding of risks and elects to proceed with scheduling surgery. Patient had opportunity to have questions answered to their satisfaction. They will contact office if issues arise. Patient will continue to be scheduled for left Achilles debridement and Bishop resection with associated procedures with Dr. Panda History of Present Illness Narrative: Ms. Trevino is an 78-year-old female who presents to hospital for scheduled left Achilles debridement and Bishop resection with associated procedures. Patient has been managing left heel discomfort for over a year despite adequate trial of conservative management including physical therapy, orthotics and anti- inflammatories. Due to patient's continued discomfort she wished to proceed with surgical intervention. Patient denies any change in left heel complaints since last orthopedic visit?for more details please refer to last office visit on 03/25/2023. Patient denies any recent changes in medical issues - denies any significant cardiac or pulmonary issues. Denies history of COVID-19 infection. 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 Thompson Thyroid nodule Tinnitus Surgical History History of colonoscopy History of lung biopsy Hx of cataract surgery Bilateral; lens implants Hx of cholecystectomy Family History Other Heart disease Social History Smoking/Tobacco Use Status: Never Smoking risk assessment performed?: Yes Alcohol Intake: current Alcohol Intake frequency: a few times a week Alcohol type: hard liquor Drug use: Never Substance use type: does not use Housing: house Current gender identity: female Do you feel safe at home: Yes Additional Social history: lives alone Meds Allergies and Home Medications Allergies Allergy/AdvReac Type Severity Reaction Status Date / Time sulfamethoxazole Allergy Intermediate Skin Rash Verified 05/08/23 07:28 [From Bactrim] trimethoprim [From Bactrim] Allergy Intermediate Skin Rash Verified 05/08/23 07:28 codeine AdvReac Mild Nausea Verified 05/08/23 07:28 Home Medications Medication Instructions Recorded Confirmed Type cholecalciferol (vitamin D3) 25 1 tab PO DAILY 03/31/17 05/08/23 History mcg (1,000 unit) tablet fluticasone 250 mcg-salmeterol 50 1 puff inhalation DAILY 03/31/17 05/08/23 History mcg/dose blistr powdr for inhalation (Advair Diskus) levothyroxine 100 mcg tablet 100 mcg PO DAILY 03/31/17 05/08/23 History (Synthroid) metoprolol tartrate 25 mg tablet 50 mg PO BID 03/31/17 05/08/23 History omeprazole 20 mg capsule,delayed 20 mg PO DAILY 03/31/17 05/08/23 History release simvastatin 20 mg tablet 20 mg PO DAILY 03/31/17 05/08/23 History sertraline 25 mg tablet 1 tab PO DAILY 07/14/18 05/08/23 History famotidine 40 mg tablet 40 mg PO DAILY 01/20/21 05/08/23 History fluticasone propionate 50 1 spray intranasal DAILY 01/20/21 05/08/23 History mcg/actuation nasal spray,suspension magnesium 250 mg tablet 1,000 mg PO DAILY 04/14/21 05/08/23 History acetaminophen 500 mg tablet 500 mg PO Q6H PRN pain #60 tabs 05/08/23 Rx hydrocodone 5 mg-acetaminophen 325 1 tab PO Q6H PRN severe pain #6 05/08/23 Rx mg tablet tabs ibuprofen 600 mg tablet 600 mg PO TID PRN pain #60 tabs 05/08/23 Rx Exam Const General: cooperative and no acute distress Resp Effort & Inspection: normal respiratory effort and able to speak in complete sentences Auscultation: clear to auscultation bilaterally, no rales, no rhonchi and no wheezes Cardio Heart Sounds: S1 normal, S2 normal and no murmurs Results Last Vital Signs Temp 97.5 F L 05/08/23 07:18 Pulse 61 05/08/23 07:18 Resp 19 05/08/23 07:18 BP 170/81 H 05/08/23 07:18 Pulse Ox 98 05/08/23 07:18 Time Spent Time spent with Patient: <40 minutes Time was spent: obtaining and/or reviewing separately otained hiistory, ordering medications,tests, procedures, indepentently interpreting results and counseling the patient
[2023-05-08] MEDS: ceFAZolin 2 GM/50 ML BAG IVPB (09:20)
[2023-05-08] MEDS: Bupivacaine 0.25% Pres-Free 30 ML VIAL (10:01)
--- NOTE | 2023-05-08 11:11 | W.ANESPOSTOP ---
Postoperative Evaluation Date, Time and Location Date Performed: 05/08/23 Time Performed: 11:11 Patient Location: PACU Vital Signs Most Recent Imported Vital Signs: Most Recent Vital Signs Temp Pulse Resp BP Pulse Ox 36.4 C L 61 19 170/81 H 98 05/08/23 07:18 05/08/23 07:18 05/08/23 07:18 05/08/23 07:18 05/08/23 07:18 Pain Score Most Recent Pain Score: Most Recent Pain Score Pain Level 0 05/08/23 07:18 Assessment Mental Status: Arousable with meaningful communication Airway and Respiratory Function: Patent airway with normal (patient baseline) respiratory exam Cardiovascular Function: Hemodynamically Stable Hydration Status: Adequately Hydrated Nausea & Vomiting: No Nausea or Vomiting Pain: Pain is tolerable per patient Peripheral Nerve Block: Patient did not receive a nerve block
--- NOTE | 2023-05-08 17:03 | ROE_ITS ---
Date of service: 05/08/23 Time of Service: 10:30 Operative Note Operative Note DATE OF PROCEDURE: 05/08/23 PRE-OP DIAGNOSIS: Insertional Calcific Tendinitis of Achilles Tendon with Bishop deformity?left foot POST-OP DIAGNOSIS: same PROCEDURE: Debridement of Achilles tendon, resection of calcific tendinitis, osteophytes and Bishop deformity -left foot SURGEON: Don Panda TRAFFIC COORDINATOR: Francheska Fox ANESTHESIA TYPE: General LMA/ETT Refer to Anesthesia Record ESTIMATED BLOOD LOSS: 20 PATHOLOGY: none sent TOURNIQUET TIME: 0 COMPLICATIONS: None Patient was transported to: PACU Indications: Esther is a 78-year-old female who has had persistent pain about the heel. Clinical evaluation and x-rays demonstrated clear calcific tendinitis of the Achilles insertion. She has failed a host of conservative options but continues to have pain and difficulty with shoe wear. Therefore, I offered operative intervention in the form of Achilles debridement, bony prominence resection, and Achilles tendon repair as indicated. I reviewed the risk of the procedure to include bleeding, infection, pain, stiffness, damage to nerves and vessels, weakness, Achilles rerupture or retear, wound healing complications. Despite these risk, Esther elected to proceed. Findings: There were notable calcific prominence of the calcaneal tuberosity which were resected and the calcaneus smooth. A prominent Bishop Forni was also resected. The Achilles repaired back down to the calcaneus. Procedure Description: Esther was greeted in the preoperative holding area. Identity was confirmed the correct side was identified and marked. Consent was reviewed the patient and signed. History of physical was updated. She was taken to the operating room. A general anesthetic was administered and then the patient was placed into the prone position. Chest rolls were placed to well-padded the chest and allow for chest expansion. The arms were placed in the 9090 position with all bony prominences well-padded. There was gel pad p laced underneath the knees and a prone ramp was placed underneath the operative leg. No tourniquet was used. Prophylactic antibiotics in the form of cefazolin were given. A timeout was performed for safe surgery. The proposed surgical site was then injected with 0.25% bupivacaine. A midline incision was then made overlying the Achilles tendon and its insertion on the calcaneus. This incision was taken down all the way to the peritenon of the Achilles tendon and its insertion on the calcaneus. Full-thickness flaps were then elevated medially and laterally to better expose Achilles tendon and its insertion. A midline incision was then made within the Achilles tendon. The tendon was elevated off of the calcaneus medially and laterally leaving some bands at the far reaches for later tensioning of the Achilles tendon. Calcific deposits from in the tendon were then removed sharply. Prominences over the calcaneal tuberosity were also removed with a rongeur. I took a chisel to then resect any Bishop deformity. This was checked by dorsiflexing the foot and inspecting for any impingement of the calcaneal prominence onto the Achilles tendon. No osteotome was utilized to remove the Bishop deformity. I also used a chisel to chamfer the medial lateral prominences of the calcaneal tuberosity as well. Once this was completed I then inspected the calcaneal insertion for any remnant sharp prominences or calcifications. A rasp was also used to smooth this down fully until there is no prominence projecting either posteriorly, medially, laterally. I made sure that the left attachments of the Achilles tendon to help guide the repair. I then placed 2 Mitek Healix 4.5 mm anchors along the proximal aspect of the lead insertion site. A locking cruciate type suture was placed in each half of the Achilles tendon using 1 limb of each suture while the other limb was passed simply through the tendon to create a stevan type style fixation. The remaining suture from the anchors were then used to close the split within the tendon tying it proximally and then using the free limbs once again to be a stevan through the distal aspect of the tendon. This had excellent recreation of the Achilles tendon onto the calcaneus by pulling the stevan limbs of the sutures. The split was completely closed. I then placed 2 Mitek Healix knotless anchors more distally within the calcaneus. 1 limb of each suture was incorporated into the knotless anchor. This had excellent fixation. The tendon was reapproximated to the calcaneal tuberosity. The extra sutures from the knotless anchor was then utilized to help further compress the edge of the Achilles tendon down to the calcaneal tuberosity. This was done with horizontal mattress sutures which were tied and cut. The wounds and thoroughly irrigated. The deep tissues were anesthetized with 0.25% bupivacaine. The deep tissue was closed with 3-0 Vicryl followed by a 4-0 nylon. Xeroform, 4 x 4, ABD, web roll was applied to the foot in a short leg splint was placed. The patient was then placed into the supine position. There is no notable complications from the prone positioning of the surgery. Esther was transitioned back to the hospital stretcher in a stable condition. The procedure was tolerated well and the patient was transferred back to the PACU in stable condition.
== END 2023-05-08 12:35 | disposition home or self-care (01) ==
PROVIDERS: PCP Family Medicine; Visit Provider Student in an Organized Health Care Education/Training Program
PROC: (CPT 11043; principal; 2023-05-08 09:30)
DX: M65.28 Calcific tendinitis, other site; M92.62 Juvenile osteochondrosis of tarsus, left ankle
CPT/HCPCS: 27654; 28118; C1776; J0131; J0690; J1100; J2001; J2405

== ENCOUNTER → 2023-05-20 09:26 | Outpatient (BNVA) | payer MEDICARE, SELFPAY | PROVIDERS: PCP Family Medicine; Referring Provider Family Medicine; Visit Provider Student in an Organized Health Care Education/Training Program | DX: Z47.89 Encounter for other orthopedic aftercare (principal); M92.62 Juvenile osteochondrosis of tarsus, left ankle; M65.28 Calcific tendinitis, other site ==

== ENCOUNTER → 2023-06-17 08:47 | Outpatient (BNVA) | payer MEDICARE, SELFPAY | PROVIDERS: PCP Family Medicine; Referring Provider Family Medicine; Visit Provider Student in an Organized Health Care Education/Training Program | DX: Z47.89 Encounter for other orthopedic aftercare (principal); M62.81 Muscle weakness (generalized) ==

== ENCOUNTER → 2023-07-29 09:17 | Outpatient (BNVA) | payer MEDICARE, SELFPAY | PROVIDERS: PCP Family Medicine; Visit Provider Student in an Organized Health Care Education/Training Program | DX: Z47.89 Encounter for other orthopedic aftercare (principal); M65.28 Calcific tendinitis, other site; M92.62 Juvenile osteochondrosis of tarsus, left ankle ==

== ENCOUNTER 2023-10-07 19:00 | Outpatient (REF) | payer MEDICARE, SELFPAY ==
[2023-10-07 17:51] LABS: Anion Gap 7.3 mmol/L (3-11); BUN 15 mg/dL (7-18); CO2 29.7 mmol/L (21.0-32.0); Calcium 9.1 mg/dL (8.5-10.1); Chloride 103 mmol/L (98-107); Estimated GFR 56.95 (mL/min/1.73m2); Glucose 87 mg/dL (74-106); Potassium 4.8 mmol/L (3.5-5.1); Sodium 140 mmol/L (136-145); TSH (W/Ref FT4) 3.67 uIU/mL (0.36-3.74)
[2023-10-07 18:00] LABS: Hemoglobin A1C 5.9 % (<5.7)
== END 2023-10-07 19:01 | disposition home or self-care (01) ==
LOC: NCHCN 19:00
PROVIDERS: PCP Family Medicine; Visit Provider Family Medicine
DX: I10 Essential (primary) hypertension (principal); E03.9 Hypothyroidism, unspecified; R73.03 Prediabetes
CPT/HCPCS: 80048; 83036; 84443

== ENCOUNTER → 2023-10-25 10:08 | Outpatient (BNVA) | payer MEDICARE, SELFPAY | PROVIDERS: PCP Family Medicine; Referring Provider Family Medicine; Visit Provider Student in an Organized Health Care Education/Training Program | DX: Z47.89 Encounter for other orthopedic aftercare (principal); M65.28 Calcific tendinitis, other site; M92.62 Juvenile osteochondrosis of tarsus, left ankle | CPT/HCPCS: 99213 ==

== ENCOUNTER → 2023-11-14 02:07 | Outpatient (CLI) | payer MEDICARE, SELFPAY ==
--- NOTE | 2023-11-14 08:28 | DI.MAMMO_ITS ---
Exam(s) MAMMO SCREENING EXAM: MAMMO SCREENING CLINICAL HISTORY: SCREENING MAMMO FOR BREAST CANCER Z12.31 TECHNIQUE: Bilateral full field digital CC and MLO mammographic images were obtained with 3D tomosyn thesis and utilizing computer aided detection (CAD). COMPARISON: Available for comparison. FINDINGS: Masses/Architectural Distortion: None seen. Microcalcifications: No suspicious pleomorphic-type are seen. Skin Thickening/Nipple Retraction: None. IMPRESSION: 1. No significant interval change with no specific features of malignancy noted. 2. Unless there is more urgent need, screening mammography is recommended, as per [employer] guidelines. BI-RADS Category 1 - Negative Breast Density - Category C - Heterogeneously dense Breast density category C or D implies that the patient has dense breast tissue. Dense breast tissue is very common and is not abnormal but dense breast tissue can make it harder to find cancer on a ma mmogram. Also, dense breast tissue may increase their breast cancer risk. This information about the result of the mammogram report was provided to the patient to raise their awareness. Use this report when you speak with the patient about their risks for breast cancer, which includes their family hist ory. At that time, you may recommend for more screening tests (Ultrasound or MRI) as they might be us eful based on their risk. A negative radiographic report should not delay biopsy if a dominant or clinically suspicious mass is present. Up to ten percent of cancers are not identified on mammography. A negative report may reinforce clinical impression. Adenosis and dense breasts may obscure an underlying neoplasm. False positive reports average 6 to 10%. Patient will receive a letter notifying them of these results.
== END ==
PROVIDERS: PCP Family Medicine; Visit Provider Family Medicine
DX: Z12.31 Encounter for screening mammogram for malignant neoplasm of breast (principal)
CPT/HCPCS: 77063; 77067

== ENCOUNTER 2024-06-12 20:35 | Emergency (ER) | payer MEDICARE, SELFPAY ==
[2024-06-12] VITALS (31 sets, daily range): BP systolic 121–189; BP diastolic 49–78; PULSE 64–84; RESP 13–36; O2SAT 92–100
--- NOTE | 2024-06-12 20:15 | RT.EKG_ITS ---
APPROVED REPORT Exam: Resting ECG Reason for Exam: dizziness Patient Location: E HR:72 bpm ECG Measurements Heart Rate 72 AXIS [place] 166 P 29 QRSd 85 QRS 2 QT 401 T 43 QTc 440 Conclusion Sinus rhythm Rate 72 No STEMI
--- NOTE | 2024-06-12 20:46 | W.ED.GENAD ---
Discharge Plan Disposition Condition: Stable Discharge Details Chief Complaint: SOB/SuddenOnset Clinical Impression: Shortness of breath, Pancreatitis Primary Care Provider: Le Thompson ED Provider: Amy Joe Home Meds and New Rx's Prescriptions: Continued acetaminophen 500 mg tablet 500 mg PO Q6H PRN (Reason: pain) Qty: 60 2RF ibuprofen 600 mg tablet 600 mg PO TID PRN (Reason: pain) Qty: 60 0RF fluticasone propion-salmeterol [Advair Diskus] 1 EACH blister with device 1 puff Inhalation DAILY levothyroxine [Synthroid] 100 MCG tablet 100 mcg PO DAILY simvastatin 20 MG tablet 20 mg PO DAILY omeprazole 20 MG capsule,delayed release(DR/EC) 20 mg PO DAILY metoprolol tartrate 25 MG tablet 50 mg PO BID cholecalciferol (vitamin D3) 1,000 UNITS tablet 1 tab PO DAILY sertraline 25 mg Tablet 1 tab PO DAILY famotidine 40 mg Tablet 40 mg PO DAILY fluticasone propionate 50 mcg/actuation [place],Suspension 1 spray INTRANASAL DAILY magnesium 250 mg tablet 1,000 mg PO DAILY Discharge Instructions Instructions: Pancreatitis (DC), Shortness of Breath, Adult ED Additional Instructions: No evidence of heart attack, stroke, or blood clots in your lungs today. There is some inflammation around your pancreas which can cause pain, and nausea and vomiting. Follow up with primary care provider in 3-5 days. Return to ED sooner if any worsening or concerns. Referrals: Le Thompson MD [Primary Care Provider] - 3 days HPI General Mode of arrival: EMS. Date/Time Provider Initiated Documentation: 06/12/24 20:39. Limitations to Documentation: no limitations. Information obtained by: patient, RN notes reviewed and old records reviewed. HPI Narrative: 79 year old female presents to ED with cc of SOB, dizziness, while out having a drink with friends tonight. 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 She denies any headache blurry vision or double vision. Denies any nausea vomiting diarrhea. She is alert oriented x 3, no pronator drift, no leg drop noted on exam. Lungs are clear to auscultation bilaterally. No swelling noted to her lower extremities. Does have a past medical history of GERD, chronic kidney disease tinnitus, SVT, irritable bowel syndrome, hypothyroidism obstructive sleep apnea high cholesterol and hypertension. Related Data Home Medications ?Medication ?Instructions ?Recorded ?Confirmed cholecalciferol (vitamin D3) 25 1 tab PO DAILY 03/31/17 06/12/24 mcg (1,000 unit) tablet fluticasone 250 mcg-salmeterol 50 1 puff inhalation DAILY 03/31/17 06/12/24 mcg/dose blistr powdr for inhalation (Advair Diskus) levothyroxine 100 mcg tablet 100 mcg PO DAILY 03/31/17 06/12/24 (Synthroid) metoprolol tartrate 25 mg tablet 50 mg PO BID 03/31/17 06/12/24 omeprazole 20 mg capsule,delayed 20 mg PO DAILY 03/31/17 06/12/24 release simvastatin 20 mg tablet 20 mg PO DAILY 03/31/17 06/12/24 sertraline 25 mg tablet 1 tab PO DAILY 07/14/18 06/12/24 famotidine 40 mg tablet 40 mg PO DAILY 01/20/21 06/12/24 fluticasone propionate 50 1 spray intranasal DAILY 01/20/21 06/12/24 mcg/actuation nasal spray,suspension magnesium 250 mg tablet 1,000 mg PO DAILY 04/14/21 06/12/24 acetaminophen 500 mg tablet 500 mg PO Q6H PRN pain #60 tabs 05/08/23 06/12/24 ibuprofen 600 mg tablet 600 mg PO TID PRN pain #60 tabs 05/08/23 06/12/24 Previous Rx's ?Medication ?Instructions ?Recorded acetaminophen 500 mg tablet 500 mg PO Q6H PRN pain #60 tabs 05/08/23 ibuprofen 600 mg tablet 600 mg PO TID PRN pain #60 tabs 05/08/23 Allergies Allergy/AdvReac Type Severity Reaction Status Date / Time sulfamethoxazole (From Allergy Intermediate Skin Rash Verified 06/12/24 20:40 Bactrim) trimethoprim (From Bactrim) Allergy Intermediate Skin Rash Verified 06/12/24 20:40 codeine AdvReac Mild Nausea Verified 06/12/24 20:40 General Stated Complaint: SOB/SuddenOnset GENEVIEVE: 3 Review of Systems All systems reviewed & are unremarkable except as noted in HPI and below Constitutional Constitutional: Reports as per HPI Cardiovascular Cardiovascular: Reports dyspnea Respiratory Respiratory: Reports dyspnea Gastrointestinal Gastrointestinal: Denies abdominal pain, Denies diarrhea, Denies nausea and Denies vomiting Exam Narrative Exam Narrative: Constitutional: Alert and oriented x3. Appears stated age. Normal body habitus. Head: Normocephalic, no trauma. Eyes: Pupils PERRL, Red reflex noted, EOM's intact. Eyelids symmetrical without lesions, discharge, or swelling. ENT: Bilateral TM's WNL, External ear normal to inspection, no mastoid TTP, swelling, or erythema, Nasal turbinates WNL, no nasal discharge. Normal dentition, Posterior pharynx WNL, no exudate. Chest: RRR, Normal S1, S2, distal pulses intact. Resp: Lungs clear to auscultation bilaterally, no wheezes, rales, or rhonchi. Abdomen: Soft, non-distended, Normoactive bowel sounds all 4 quads. Musculoskeletal: Normal gait, Moves all 4 extremities without difficulty. Skin: No suspicious rashes or lesions. Capillary refill less than 2 sec. Neurologic: Cranial nerves II-XII intact. Alert and oriented x 3. Motor: No deficits noted. Sensory: Intact bilaterally all 4 extremities. No pronator drift, no facial droop, intact dorsal pedal flexion extension. Machine Heddle Cleaner equal bilaterally. Hematologic/Lymphatic: No ecchymosis, no lymphadenopathy. Course Vital Signs Vital signs: Vital Signs Pulse 76 06/12/24 20:34 Respiratory Rate 36 H 06/12/24 20:34 Blood Pressure 138/71 06/12/24 20:34 Pulse Oximetry 99 06/12/24 20:34 Pulse 76 06/12/24 20:34 Respiratory Rate 28 H 06/12/24 20:41 Respiratory Effort Labored 06/12/24 20:41 Respiratory Depth Shallow 06/12/24 20:41 Respiratory Pattern Tachypnea 06/12/24 20:41 Blood Pressure 138/71 06/12/24 20:34 Blood Pressure Position Supine 06/12/24 20:34 Pulse Oximetry 99 06/12/24 20:34 Oxygen Delivery Method Nasal Cannula 06/12/24 20:34 Oxygen Flow Rate 2 06/12/24 20:34 Pain Level 0 06/12/24 20:34 Medical Decision Making 79 year old female presents to ED with cc of SOB, dizziness, while out having a drink with friends tonight. 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 She denies any headache blurry vision or double vision. Denies any nausea vomiting diarrhea. She is alert oriented x 3, no pronator drift, no leg drop noted on exam. Lungs are clear to auscultation bilaterally. No swelling noted to her lower extremities. Does have a past medical history of GERD, chronic kidney disease tinnitus, SVT, irritable bowel syndrome, hypothyroidism obstructive sleep apnea high cholesterol and hypertension. Workup ordered including CBC CMP, PT PTT proBNP due to the shortness of breath, Fluvid swab, chest x-ray head CT and urinalysis. Elevated dimer of 1267, CT chest ordered. Informed by RN that patient is feeling much better. Patient taken off 2L o2 nc, o2 sat 95%. CT chest shows no evidence for PE. There is some bilateral diffuse interstitial groundglass changes which could represent interstitial edema or CHF. There is also some inflammation surrounding pancreatic head. Lipase added on to rule out pancreatitis. proBNP is within normal limits so less likely CHF. COVID flu and RSV are negative. Patient reports she is feeling better. At this time awaiting serial troponin and lipase. patient given some crackers and water for PO challenge. Will sign out to oncoming provider Kushal Mcnair pending repeat Troponin with most likely dispo home if able to tolerate PO without difficulty and negative troponin and lipase. This text was generated using Deep-[employer] system, please disregard any oddities of phrase or misspellings. Medical Records Medical records reviewed: Yes I reviewed the patient's medical records. Imaging Data Radiologic Study: Imaging: CT Scan Radiologist's impression: HOLDEN GORDON Preliminary Radiology Report SENIOR COST ANALYST (QA) DISCREPANCY? If there is a discrepancy between the preliminary and final interpretation, please notify [facility] via [email or web address]. If you do not have access to our QA portal, call our QA team at [phone] CONFIDENTIALITY STATEMENT This report is intended only for the use of the referring physician, and only in accordance with law, If you received this in error, call [phone] Page 2 of 2 Intraperitoneal space: Limited view of the upper abdomen suggesting mild inflammation surrounding the pancreatic head extending towards the right upper quadrant. Possibility of pancreatitis. Please correlate with pancreatic serology. Bones/joints: Unremarkable. No acute fracture. Soft tissues: Unremarkable. IMPRESSION: 1. Interstitial edema versus interstitial pneumonitis bilaterally. 2. No pulmonary arterial embolism. 3. No pleural effusion. 4. Mild fatty inflammation in the upper abdomen adjacent to the pancreatic head and right upper quadrant. Please correlate clinically for possible pancreatitis. 5. Previous cholecystectomy. 6. Partial visualization of a right renal parapelvic cyst. No further imaging follow-up recommended. Thank you for allowing us to participate in the care of your patient. Dictated and Authenticated by: Dayday Wilson MD Lab Data Lab results reviewed: Yes I reviewed the patient's lab results. Labs: Laboratory Tests Range/Units 06/12/24 06/12/24 20:37 20:50 WBC (4.4-10.8) 10^3/uL 9.90 RBC (3.93-5.22) 10^6/uL 5.36 H Hgb (11.2-15.7) g/dL 15.8 H Hct (36.0-46.0) % 47.2 H MCV (80-95) fL 88 MCH (27.0-33.0) pg 29.5 MCHC (32.0-36.0) % 33.5 RDW (11.7-14.6) % 14.1 Plt Count (130-400) 10^3/uL 230 MPV (8.0-11.0) fL 11.1 H Immature Gran % % 0.3 Neutrophils % % 55.9 Lymphocytes % % 30.9 Monocytes % % 9.1 Eosinophils % % 2.7 Basophils % % 1.1 Nucleated RBC % (0.0-0.3) % 0.0 Absolute Neutrophils (1.2-6.7) 10^3/uL 5.53 Absolute Lymphocytes (1.2-3.4) 10^3/uL 3.06 Absolute Monocytes (0.1-0.8) 10^3/uL 0.90 H Absolute Eosinophils (0.0-0.7) 10^3/uL 0.27 Absolute Basophils (0.0-0.2) 10^3/uL 0.11 PT (9.1-11.1) sec 9.7 INR (0.9-1.1) 1.0 APTT (23.6-32.8) sec 22.3 L D-Dimer (<500) ng/mlFEU 1267 H Sodium (136-145) mmol/L 137 Potassium (3.5-5.1) mmol/L 3.9 Chloride (98-107) mmol/L 100 Carbon Dioxide (21.0-32.0) mmol/L 25.9 Anion Gap (3-11) mmol/L 11.1 H BUN (7-18) mg/dL 18 Creatinine (0.55-1.02) mg/dL 1.3 H Est GFR (CKD-EPI 2020) (mL/min/1.73m2) 41.31 Glucose (74-106) mg/dL 143 H Calcium (8.5-10.1) mg/dL 9.4 Magnesium (1.8-2.4) mg/dL 2.2 Total Bilirubin (0.2-1.0) mg/dL 0.72 AST (15-37) U/L 22 ALT (14-59) U/L 20 Alkaline Phosphatase (46-116) U/L 75 Troponin I (< or =60) ng/L < 50 NT-Pro-B Natriuret Pep (<300) pg/mL 129 Total Protein (6.4-8.2) g/dL 7.5 Albumin (3.4-5.0) g/dL 3.6 Ethyl Alcohol (<10) mg/dL 8.4 COVID-19 Source NASOPHARYNX SARS-CoV-2 (PCR) (Negative) Negative Influenza Type A (PCR) (Negative) Negative Influenza Type B (PCR) (Negative) Negative RSV (PCR) (Negative) Negative Quality:SDOH Health Related Social Needs: No Data to Display PFSH All Active Problems (Updated 06/12/24 @ 22:55 by Amy Joe NP) Pancreatitis (Chronic) Shortness of breath (Acute) Neoplasm of bone, soft tissue, or skin (Acute) Sensorineural hearing loss of both ears (Acute) Myxoid cyst (Acute) RMF, S/P Excision: 05/02/2021 Mucoid cyst of joint (Acute) Medical History GERD (gastroesophageal reflux disease) Prediabetes Chronic kidney disease (CKD) Stage 3 Tinnitus Thyroid nodule SVT (supraventricular tachycardia) F/U with Dr. Thompson Hypersensitivity pneumonitis IBS (irritable bowel syndrome) Stress incontinence Disorder of sciatic nerve Panic disorder Hypothyroidism JUDE (obstructive sleep apnea) High cholesterol Hypertension Surgical History Hx of cataract surgery Bilateral; lens implants History of lung biopsy Hx of cholecystectomy History of colonoscopy Family History Other Heart disease Social History Smoking/Tobacco Use Status: Never Smoking risk assessment performed?: Yes Alcohol Intake: current Alcohol Intake frequency: a few times a week Alcohol type: hard liquor Drug use: Never Substance use type: does not use Housing: house Current gender identity: female Do you feel safe at home: Yes Additional Social history: lives alone Sign Out Sign Out Data: Sign Out Comment: Pending repeat troponin and lipase. CT shows pancreatitis. Discharge papers written up pending Troponin. Last updated by Amy Joe NP at 06/12/24 23:03 PAWSS Have you Been Recently Intoxicated or Drunk Within the Last 30 days?: No Have you Ever Experienced Previous Episodes of Alcohol Withdrawal?: No Have you ever Experienced Withdrawal Seizures?: No Have you ever Experienced Delirium Tremens(DT)s?: No Have you ever undergone Alcohol Rehabilitation Treatment (i.e, inpt ot outpatient treatment programs)?: No Have you ever Experienced Blackouts?: No Have you ever Combined Alcohol with other Downers within the last 90 days?: No Have you ever Combined Alcohol with any other Substance of Abuse during the last 90 days?: No Positive Blood Alcohol level on Presentation? [PCS.BAL]: Unable to Obtain Evidence of Increased Autonomic Activity (i.e. HR>120, tremor, sweating, agitation, nausea)?: No Result: 0
[2024-06-12 20:48] LABS: Abs Immature Grans 0.03 10^3/uL (0.0-0.06); Absolute Basophil Count 0.11 10^3/uL (0.0-0.2); Absolute Eosinophil Count 0.27 10^3/uL (0.0-0.7); Absolute Lymphocyte Count 3.06 10^3/uL (1.2-3.4); Absolute Neutrophil Count 5.53 10^3/uL (1.2-6.7); Basophils % 1.1 %; Eosinophils % 2.7 %; HCT 47.2 % (36.0-46.0); HGB 15.8 g/dL (11.2-15.7); Immature Grans % 0.3 %; Lymphocytes % 30.9 %; MCH 29.5 pg (27.0-33.0); MCHC 33.5 % (32.0-36.0); MCV 88 fL (80-95); MPV 11.1 fL (8.0-11.0); Monocytes % 9.1 %; Neutrophils % 55.9 %; Platelet Count 230 10^3/uL (130-400); RBC 5.36 10^6/uL (3.93-5.22); RDW 14.1 % (11.7-14.6); RDW-SD 45.5 fL
--- OUTSIDE RECORDS SUMMARY | 2024-06-12 20:54 | XMS_ITS | Referral Summary ---
Author Organization [facility] Address [address] [place] [address] Care Team Providers Care Garbage Collector Supervisor Name Role Phone Le Thompson MD Primary Care Provider [phone] Social History Tobacco Use Types Packs/Day Years Used Date Smoking Tobacco: Never Assessed Interpersonal Safety Answer Date Record ed Physically Hurt Never 05/22/2020 Verbally Threaten Not on file 05/22/2020 Sex and Gender Information Value Date Recorded Sex Assigned at Not on file Gender Identity Not on file Sexual Orientation Not on file Plan of Treatment Not on file Care Teams Garbage Collector Supervisor Relationship Specialty Start Date End Date Le Thompson MD [address] [place] [phone] PCP - General 11/24/09
--- OUTSIDE RECORDS SUMMARY | 2024-06-12 20:54 | XMS_ITS | Clinical Summary ---
Author Organization [facility] Address [address] [place] [address] Care Team Providers Care Cleaner Name Role Phone Le Thompson MD Primary Care Provider [phone] Social History Tobacco Use Types Packs/Day Years Used Date Smoking Tobacco: Never Assessed Interpersonal Safety Answer Date Record ed Physically Hurt Never 05/22/2020 Verbally Threaten Not on file 05/22/2020 Sex and Gender Information Value Date Recorded Sex Assigned at Not on file Gender Identity Not on file Sexual Orientation Not on file Plan of Treatment Health Maintenance Due Date Last Done Comments RSV Immunization ( o r 60+ Years) (1 - 1-dose 60+ series) 2003 Fall Risk Screening 2008 COVID-19 Vaccine (2022- season) 2023 Care Teams Cleaner Relationship Specialty Start Date End Date Le Thompson MD [address] [place] [phone] PCP - General 11/24/09
--- OUTSIDE RECORDS SUMMARY | 2024-06-12 20:54 | XMS_ITS | Encounter Summary ---
Author Organization [facility] Address [address] [place] [address] Care Team Providers Care Fertilizer Processing Supervisor Name Role Phone Le Thompson MD Primary Care Provider [phone] Encounter Details Date Type Department Care Team (Late st Contact Info) Description 08/16/2021 Lab Requisition [facility] Pathology & Laboratory Medicine - [address] [id number] Outr Resulting Lab, Provider Social History Tobacco Use Types Packs/Day Years Used Date Smoking Tobacco: Never Assessed Interpersonal Safety Answer Date Record ed Physically Hurt Never 05/22/2020 Verbally Threaten Not on file 05/22/2020 Sex and Gender Information Value Date Recorded Sex Assigned at Not on file Gender Identity Not on file Sexual Orientation Not on file documented as of this encounter Plan of Treatment Not on file documented as of this encounter Procedures Procedure Name Priority Date/Time Associated Diagnosis Comments ZZCOVID-19 TEST [facility] PCR Today 08/16/2021 9:37 EDT COVID-19 TESTING Routine 08/16/2021 9:37 EDT documented in this encounter Results * COVID-19 TEST [facility] PCR (08/16/2021 9:37 EDT) Swab ENTIRE NASOPHARYNX / Unknown 08/16/2021 9:37 EDT 08/16/2021 16:20 EDT Provider Outr Resulting Lab MICROBIOLOGY - GENERAL ORDERABLES Performing Organization Address City/State/[facility] Co de Phone Number [facility] [address] [place] [address] * COVID-19 TESTING (08/16/2021 9:37 EDT) COVID-19 rt-PCR Result Negative Negative 08/16/2021 20:07 EDT [facility] Comment: This test has not been FDA cleared or approved. This test has been authorized by FDA under an EUA for use by authorized laboratories. This test has been authorized only for detection of nucleic acid from 2019-nCoV, not for any other viruses or pathogens. This test is only authorized for the duration of the declaration that circumstances exist justifying the authorization of emergency use of in vitro diagnostic tests for detection and/or diagnosis of 2019-nCoV under section 564(b)(1) of Act, 21 U.S.C ?? 360bbb-3(b) (1), unless the authorization is terminated or revoked sooner. Negative results do not preclude 2019-nCoV infection and should not be used as the sole basis for treatment or other patient management decisions. Negative results must be combined with clinical observations, patient history, and epidemiological information. Performed on the [employer]Quest Fusion instrument Performing Lab [facility] 08/16/2021 20:07 EDT [facility] Swab 08/16/2021 9:37 EDT 08/16/2021 16:20 EDT Provider Outr Resulting Lab MICROBIOLOGY - GENERAL ORDERABLES Performing Organization Address [facility] Co de Phone Number [facility] [address] [place] [address] documented in this encounter Visit Diagnoses Not on filedocumented in this encounter Care Teams Fertilizer Processing Supervisor Relationship Specialty Start Date End Date Le Thompson MD [address] [place] [phone] PCP - General 11/24/09 documented as of this encounter
--- OUTSIDE RECORDS SUMMARY | 2024-06-12 20:54 | XMS_ITS | Data Portability ---
Author Organization [place] [facility] Address [address] [place] [address] Assessment Encounter Date Assessment Date Assessment LastModified by Organization Details LastModified Time 10/07/2023 10/07/2023 Patient presente d to office today for their Medicare Annual Wellness Visit. Education was provided on healthy nutrition, including a diet rich in fruits and vegetables, minimizing simple carbohydrates, salt, and saturated fats. Encouraged regular cardiovascular exercise such as walking at least 30 minutes daily, 5 times per week. Emphasized preventive health measures and educated pt on fall prevention and community-based lifestyle interventions to help reduce health risks and promote healthy living. Personalized prevention plan (PPP) completed and reviewed with patient. Patient was given copy of PPP at conclusion of visit. Not available 10/05/2023 16:53:02 Plan of Treatment Reminders Order Date Submit Date Provider Last Modified By Organization Details Last Modified Time Details Appointments None recorded. Lab HbA1c (hemoglobi n A1c), blood 2022 023 [facility] (Registration ), [address] [place] [address] [place], [address], 3 10:15:59 HbA1c (hemoglobi n A1c), blood 2022 024 [facility] (Registration ), [address] [place] [address] [place], [address], 3 10:01:54 TSH, serum, reflex free T4 2022 023 [facility] (Registration ), [address] [place] [address] [place], [address], 3 10:15:59 TSH, serum, reflex free T4 2022 024 [facility] (Registration ), [address] [place] [address] [place], [address], 3 10:01:54 BMP, serum or plasma 2022 023 flaff [facility] (Registration ), [address] [place] [address] [place], [address], 3 10:15:59 BMP, serum or plasma 2022 024 [facility] (Registration ), [address] [place] [address] [place], [address], 3 10:01:54 Referral None recorded. Procedures None recorded. Surgeries None recorded. Imaging MAMMO, screening, digital, bilateral 2022 023 [facility] (Radiology), [address] [place] [address] [place], [address], 4 14:10:19 Medication Orders None recorded. Patient TargetsNo targets recorded. Patient Instructions Encounter Date Encounter Id Patient Instructions Last Modified By Organization Details Last Modified Time 10/07/2023 [id number] advance care planning: care instructions Not available 10/07/2023 10:11:09 medicare preventive services guide( female>75yrs) Not available 10/07/2023 10:11:09 Yes getting a light box can absolutely be helpful, set up a routine to use it daily. Check with [facility] lula about classes or activities, especially when your friends are away in [place]. Please complete new advanced directives and bring back to us= we can send it to [facility] and to the [place] registry. Not available 10/07/2023 10:07:50 Discussed and explained advance directives such as standard forms to the {{patient* caregi gali patient and caregiver}}. Face to face discussion lasted for a duration of 5 minutes. Not available 10/07/2023 10:07:30 02/10/2024 [id number] Look over the FODMAP diet charts and STOP all of the bad foods for 2-3 weeks, then you can start adding them back in. Not available 02/10/2024 14:27:32 Reason for Referral None Reported. Results Created Date Observation Date Name Description Value Unit Range Abnormal Flag Note LastModifiedBy Organization Detail LastModifiedTime 10/07/2010/07/2023 BASIC METAB OLIC PANEL calcium 9.1 mg/dL 8.5-10 .1 normal Not Available [address] [facility] [place], [address] 10/07/2023 17:54:57 10/07/2010/07/2023 BASIC METAB OLIC PANEL glucose 87 mg/dL 74-106 normal Not Available Katya raines [address] [place], [address] 10/07/2023 17:54:57 10/07/20 23 10/07/2023 BASIC METAB OLIC PANEL BUN 15 mg/dL 7-18 normal Not Available Katya raines [address] [place], [address] 10/07/2023 17:54:57 10/07/20 23 10/07/2023 BASIC METAB OLIC PANEL creatinine 1.0 mg/dL 0.55-1 .02 normal Not Available [address] [facility] [place], [address] 10/07/2023 17:54:57 10/07/2010/07/2023 BASIC METAB OLIC PANEL estimated GFR 56.95 mL/min /1.73m 2 The eGFR is calcu lated from a serum creat inine using the CKD-E PI 2020 equat ion. Other varia bles requi red for the equat ion are gende r and age; this equat ion does not inclu de a race coeff icien t. This equat ion has simil ar overa ll perfo rmanc e to previ ous equat ions excep t value s may diffe r, in parti cular , in patie nts with highe r value s of eGFR and young er-ag ed adult s. Not Available [address] [place], [address] 10/07/2023 17:54:57 10/07/20 23 10/07/2023 BASIC METAB OLIC PANEL sodium 140 mmol/ L 136-14 5 normal Not Available [address] [place], [address] 10/07/2023 17:54:57 10/07/20 23 10/07/2023 BASIC METAB OLIC PANEL potassium 4.8 mmol/ L 3.5-5. 1 normal Not Available [address] [place], [address] 10/07/2023 17:54:57 10/07/2010/07/2023 BASIC METAB OLIC PANEL chloride 103 mmol/ L 98-107 normal Not Available [address] [place], [address] 10/07/2023 17:54:57 10/07/20 23 10/07/2023 BASIC METAB OLIC PANEL CO2 29.7 mmol/ L 21.0-3 2.0 normal Not Available [address] [place], [address] 10/07/2023 17:54:57 10/07/20 23 10/07/2023 BASIC METAB OLIC PANEL anion gap 7.3 mmol/ L 3-11 normal Not Available [address] [place], [address] 10/07/2023 17:54:57 10/07/20 23 10/07/2023 TSH (W/RE F FT4) TSH (w/ref FT4) 3.67 uIU/m L 0.36-3 .74 normal NOTE: Supra -phys iolog ic doses of Bioti n(B7) may cause false negat lashae resul ts. Not Available [address] [place], [address] 10/07/2023 17:54:57 10/07/20 23 10/07/2023 HEMOG LOBIN A1C hemoglobin A1C 5.9 % <5.7 high Refer ence Range s <5.7 Smita l 5.7-6 .4% Predi abete s 6.5% or great er Diagn ostic for diabe familia (if confi rmed) Refer ences : 1. Ameri can Diabe familia Assoc iatio n. Clas sific ation and Diagn osis of Diabe familia. Diabe familia Care 2018 2(Sup pleme nt 1):S1 3-s28 . Not Available [facility] [address], [place], [address] 10/07/2023 18:02:55 11/14/19 24 11/14/2023 MAMMO , scree brie, digit al, bilat eral Patien t Name: Willi Trevino Unit #: [id number] Loc: DI Orderi ng Provid er: Le Gonzalez M.D. Accoun t #: [id number] Status : REG CLI Primar y Care Provid er: Le Gonzalez M.D. Date of Exam: Sex: F Admiss ion Date: : 1944 Age: 78 Exam(s ) MG MAMMO SCREEN ING EXAM: MG MAMMO SCREEN ING CLINIC AL HISTOR Y: SCREEN ING MAMMO FOR BREAST CANCER Z12.31 TECHNI QUE: Bilate ral full field digita l CC and MLO mammog raphic images were obtain ed with 3D tomosy nthesi s and utiliz ing comput er aided detect ion (CAD). COMPAR TERRI: Availa ble for compar terri. FINDIN GS: Masses /Archi tectur al Distor tion: None seen. Microc alcifi cation s: No suspic ious pleomo rphic- type are seen. Skin Thicke brie/N ipple Retrac tion: None. IMPRES TERRY: 1. No signif icant interv al change with no specif ic featur es of malign pascual noted. 2. Unless there is more urgent need, screen ing mammog yuliana is recomm ended, as per [place] an Cancer Societ y guidel david. BI-RAD S Catego ry 1 - Negati ve Breast Densit y - Catego ry C - Hetero geneou sly dense Breast densit y catego ry C or D implie s that the patien t has dense breast tissue . Dense breast tissue is very common and is not abnorm al but dense breast tissue can make it harder to find cancer on a mammog madeline. Also, dense breast tissue may increa se their breast cancer risk. This inform ation about the result of the mammog madeline report was provid ed to the patien t to raise their awaren ess. Use this report when you speak with the patien t about their risks for breast cancer , which includ es their family histor y. At that time, you may recomm end for more screen ing tests (Ultra sound or MRI) as they might be useful based on their risk. A negati ve radiog raphic report should not delay biopsy if a domina nt or clinic ally suspic ious mass is presen t. Up to ten percen t of cancer s are not identi fied on mammog yuliana. A negati ve report may reinfo rce clinic al impres terry. Adenos is and dense breast s may obscur e an underl apoorva neopla sm. False positi ve report s averag e 6 to 10%. Patien t will receiv e a letter notify ing them of these result s. Ordere d By: Le Gonzalez M.D. CC: ------ ------ ------ ------ ------ ------ ------ ------ ------ ------ ------ ------ - Dictat ed By: Osmel Og M.D. 832 Transc ribed By: Osmel Og 832 This is privil eged, confid ential inform ation intend ed only for the provid er named. Any use or distri bution by any person other than this provid er is strict ly prohib ited. If you receiv e this report in error, please notify us immedi kanely at and return the origin al report to us at the addres s above. Thank- you. [email or web address] [facility] (Radiology) [address] [place] [address] [place], [address], 11/19/2023 14:36:03 Result Notes Documentation Provider Name and Address Organization Details Recorded Time Mammo, Screening, Digital, Bilateral : Patient Name: Mary Trevino Unit #: [id number] Loc: Ordering Provider: Le Gonzalez M.D. 6 Status: REG CLI Primary Care Provider: Le Gonzalez M.D. Date of Exam: Sex: F Admission Date: 11/14/23 : 1945 Age: 78 Exam(s) MG MAMMO SCREENING EXAM: MG MAMMO SCREENING CLINICAL HISTORY: SCREENING MAMMO FOR BREAST CANCER Z12.31 TECHNIQUE: Bilateral full field digital CC and MLO mammographic images were obtained with 3D tomosynthesis and utilizing computer aided detection (CAD). COMPARISON: Available for comparison. FINDINGS: Masses/Architectural Distortion: None seen. Microcalcifications: No suspicious pleomorphic-type are seen. Skin Thickening/Nipple Retraction: None. IMPRESSION: 1. No significant interval change with no specific features of malignancy noted. 2. Unless there is more urgent need, screening mammography is recommended, as per [place] [employer] guidelines. BI-RADS Category 1 - Negative Breast Density - Category C - Heterogeneously dense Breast density category C or D implies that the patient has dense breast tissue. Dense breast tissue is very common and is not abnormal but dense breast tissue can make it harder to find cancer on a mammogram. Also, dense breast tissue may increase their breast cancer risk. This information about the result of the mammogram report was provided to the patient to raise their awareness. Use this report when you speak with the patient about their risks for breast cancer, which includes their family history. At that time, you may recommend for more screening tests (Ultrasound or MRI) as they might be useful based on their risk. A negative radiographic report should not delay biopsy if a dominant or clinically suspicious mass is present. Up to ten percent of cancers are not identified on mammography. A negative report may reinforce clinical impression. Adenosis and dense breasts may obscure an underlying neoplasm. False positive reports average 6 to 10%. Patient will receive a letter notifying them of these results. Ordered By: Le Gonzalez M.D. CC: Dictated By: Osmel Og M.D. 11/14/2383211/14/23832 Transcribed By: Osmel Og 11/14/23832 This is privileged, confidential information intended only for the provider named. Any use or distribution by any person other than this provider is strictly prohibited. If you receive this report in error, please notify us immediately at [phone] and return the original report to us at the address above. Thank-you. 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 MD [address], [place] [address] , [facility] 3 16:44:54 Hypothyr oidism 04119656 Active [address], [place] [address] , [facility] 3 16:46:52 Essentia l hyperten terry 72465261 Active 2006 metoprol ol as this helps with her palpitat ions. MD [address], [place] [phone] , [facility] 3 16:39:16 Irritabl e bowel syndrome 72885999 Active 2004 miralax MD [address], [place], [address] , [facility] 3 16:47:28 Hyperlip idemia 10188564 Active 2004 on statin MD [address], [place], [address] , [facility] 3 16:46:44 Insomnia 306409333 Active 2004 mbien 5 mg to use 2-3 times max per week. MD [address], [place], [address] , [facility] 3 16:47:09 Adult health examinat ion Active [address], [place], [address] , [facility] 3 16:37:44 Pain of left knee joint 95474380457 4107 Completed 201408/19/2015 07/22/20 15 - Comments only - Le Gonzalez MD - try advil prior to 3 mile walk, not interest ed in PT at this time, do not feel xray would change manageme nt. Problem Code: M25.562; Problem Code Type: ICD-10; Not Available [facility] 3 04:12:39 Obstruct lashae sleep apnea syndrome 73559414 Active 2015 slumber bump MD [address], [place], [address] , [facility] 3 16:48:07 Menopaus e present 513357320 Completed 201508/16/2016 Problem Code: Z78.0; Problem Code Type: ICD-10; Not Available [facility] 3 04:12:39 Acute upper respirat ory infectio n 17377811 Completed 201705/06/2018 04/22/20 18 - Comments only - Ricarda Ocasio APRN - No s/s of bacteria l infectio n. Recommen d symptoma tic tx. Use tessalon TID PRN for dry, tickly cough. Problem Code: J06.9; Problem Code Type: ICD-10; Not Available [facility] 3 04:12:39 Panic disorder 658403073 Active 2017 low dose sertalin e. 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 Declines trial of dfferent medicati on. Ferritin level is normal. Will continue to do her strethci ng and lie with feet up on the wall prior to bed which helps. Problem Code: G25.81; Problem Code Type: ICD-10; MD [address], [facility] [address] , [facility] 3 16:37:21 Pre-surg jia evaluati on Completed 202001/25/2021 01/12/20 21 - Comments only - Le Gonzalez MD - She is medicall y stable and cleared for upcoming cataract surgery. Problem Code: Z01.818; Problem Code Type: ICD-10; Not Available [facility] 3 04:12:41 Trochant jaiden bursitis of left hip 82231176939 9103 Active [address], [place], [address] , [facility] 3 16:49:23 Follicul ar cysts of skin and subcutan eous tissue 488163026 Completed 202010/05/2023 mucoid cyst, removed MD [address], [place], [address] , [facility] 3 16:42:51 Menopaus e present 651802041 Completed 202010/13/2021 Problem Code: Z78.0; Problem Code Type: ICD-10; Not Available [facility] 3 04:12:41 Insect bite Completed 202104/13/2022 03/30/20 22 - Comments only - Le Gonzalez MD - monitor in mirror, if area of redness greater than 4 cm/2 inches, consider treatmen t for Lyme with doxycyli ne. Not Available [facility] 3 04:12:41 Left Achilles tendinit is 84805101157 9102 Active [address], [place], [address] , [facility] 3 16:47:39 Bilatera l hearing loss 89571659 Active 2021 hearing aides MD [address], [place], [address] , [facility] 3 16:38:58 Hyperten sive disorder 64858560 Completed 200607/17/2023 Not Available [facility] 3 04:12:46 Disorder of skin and/or subcutan eous tissue 82114112 Completed 201708/05/2019 Problem Code: L98.9; Problem Code Type: ICD-10; Not Available [facility] 3 04:12:46 Indigest ion 595570469 Completed 200007/17/2023 Not Available [facility] 3 04:12:47 Hypergly cemia 63139147 Completed 201807/17/2023 01/29/20 19 - Comments only - Le Gonzalez MD - Her most recent fasting glucose was 101, A1c was drawn today. Problem Code: R73.9; Problem Code Type: ICD-10; Not Available [facility] 3 04:12:47 Nasal congesti on 76912316 Completed 201606/09/2018 Problem Code: R09.81; Problem Code Type: ICD-10; Not Available [facility] 3 04:12:48 Nonulcer dyspepsi a 2255516 Completed 200008/01/2018 Problem Code: K30; Problem Code Type: ICD-10; Not Available [facility] 3 04:12:49 Low back pain 003281850 Completed 201808/05/2019 Problem Code: M54.5; Problem Code Type: ICD-10; Not Available [facility] 3 04:12:49 Thyroid nodule 530231153 Completed 200407/17/2023 Not Available [facility] 3 04:12:49 Fatigue 37659009 Completed 201507/17/2023 03/29/20 16 - Comments only - Le Gonzalez MD - And insomnia . I agree that it is worth referrin g her to the sleep lab. She and I agreed that if her sleep evaluati on is negative , we will consider counseli ng. Problem Code: R53.83; Problem Code Type: ICD-10; Not Available [facility] 3 04:12:49 Pain in left foot 34781910953 9107 Completed 202110/01/2022 Problem Code: M79.672; Problem Code Type: ICD-10; Not Available [facility] 3 04:12:50 Cataract 148297667 Completed 202003/08/2021 Problem Code: H26.9; Problem Code Type: ICD-10; Not Available [facility] 3 04:12:50 Lung field abnormal 357983706 Completed 201708/05/2019 Problem Code: R91.8; Problem Code Type: ICD-10; Not Available [facility] 3 04:12:51 Pain in right foot 58463155311 9107 Completed 201808/05/2019 Problem Code: M79.671; Problem Code Type: ICD-10; Not Available [facility] 3 04:12:51 Palpitat ions 73188451 Completed 201708/22/2020 Problem Code: R00.2; Problem Code Type: ICD-10; Not Available [facility] 3 04:12:52 Mild memory disturba nce 964610393 Active 2020 on curcumin MD [address], [place] [phone] , [facility] 3 16:38:28 Female stress incontin ence 42923196 Active [address], [place] [address] , [facility] 3 16:43:37 History of polyp of colon 356518572 Active 2009 hyperpla stic MD [address], [place] [address] , [facility] 3 16:46:08 Problem Notes None recorded. Procedures Surgical History None recorded. Imaging Results Imaging Date Name Status LastModified by Organiz ation Details LastModified Time 11/14/2023 MAMMO, screening, digital, bilateral completed [email or web address] [facility] (Radiology) [address], [place], [address], 11/19/2023 14:36:03 Procedure Notes None recorded. Medical Equipment None Reported. Allergies Allergen ID Allergen Name Allergen Category Reaction Reaction Severity Criticality Documentation Date Start Date Code Code System Note Provider Name and Address Organization Details Recorded Time 82193 codeine medicatio n abdominal pain mild Not available 08/30/20232004 2670 RxNorm ABD PAIN Aller gyRea ction : 'ABD PAIN' ; Aller gyCod e: '0040 53707 32'; Aller gyNam e: 'CODE INE'; Aller gyCon ceptT ype: 'NDC' ; Not Available [facility] 16:18:57 Medications Name Sig Start Date Stop Date Status Note LastModified by Organization Details LastModified Time clotrimaz ole 10 mg lorri 11/16 completed Not Available Not Available Not Available ropinirol e 1 mg tablet Take 1 tab by mouth daily at bedtime PRN for restless legs 08/22 completed sleep provider Not Available Not Available Not Available hydrocodo ne 5 mg-acetam inophen 325 mg tablet TAKE ONE TABLET BY MOUTH EVERY 6 HOURS NEEDED FOR SEVERE POSTOPER ATIVE PAIN 10/07 completed Not Available Not Available Not Available famotidin e 40 mg tablet Take 1 tablet by mouth once a day 2023 active Not Available Not Available Not Avai lable prednison e 20 mg tablet Two daily for 7 days 01/14 completed Not Available Not Available Not Available penicilli n V potassium 500 mg tablet 1 TAB BID 01/22 completed Not Available Not Available Not Available Advair Diskus 100 mcg-50 mcg/dose powder for inhalatio n Inhale 1 puff by mouth every day as directed active Not Available Not Available No t Available aspirin 81 mg tablet,de layed release 09/29 completed Not Available Not Available Not Available levothyro xine 100 mcg tablet Take 1 tablet by mouth every day 2023 active Not Available Not Available Not Avai lable Synthroid 25 mcg tablet 1 TAB QD 06/19 completed Not Available Not Available Not Available benzonata te 100 mg capsule take 1 capsule by mouth every 8 hours as needed for cough 01/28 completed Not Available Not Available Not Available simvastat in 20 mg tablet Take 1 tablet by mouth every night at bedtime 2023 active Not Available Not Available Not Avai lable Advair Diskus 250 mcg-50 mcg/dose powder for inhalatio n 1 inh daily 2013 active filled 03/13/16 Not Available Not Available Not Available metoprolo l tartrate 50 mg tablet Take 1 tablet by mouth twice daily 2022 active Not Available Not Available Not Avai lable Synthroid 75 mcg tablet 1 TAB QD 02/16 completed Not Available Not Available Not Available Advair Diskus 500 mcg-50 mcg/dose powder for inhalatio n 1-2 bid 12/09 completed Not Available Not Available Not Available Glucosami ne 500 mg tablet take 1 bid 2020 active Not Available Not Available Not Avai lable Synthroid 50 mcg tablet 1 TAB QD 11/16 completed Not Available Not Available Not Available sertralin e 25 mg tablet Take 1 tablet by mouth once a day 2023 active Not Available Not Available Not Avai lable aspirin 81 mg tablet 1TAB daily 2010 active Not Available Not Available Not Avai lable zolpidem 5 mg tablet take one at bedtime as needed for insomnia . 01/28 completed Not Available Not Available Not Available ergocalci ferol (vitamin D2) 1,250 mcg (50,000 unit) capsule 1 .twice weekly 12/30 completed Not Available Not Available Not Available dexametha sone sodium phosphate 4 mg/mL injection solution 120mg per 30mL 4 mg per mL for physical therpay 08/05 completed Not Available Not Available Not Available ibuprofen 600 mg tablet TAKE ONE TABLET BY MOUTH THREE TIMES A DAY NEEDED FOR PAIN active Not Available Not Available No t Available fluticaso ne propionat e 50 mcg/actua tion nasal spray,sharyn pension 1 spray into both nostrils every morning 2022 active Not Available Not Available Not Avai lable clotrimaz ole 1 % lotion crm bid 01/19 completed Not Available Not Available Not Available magnesium 250 mg (as magnesium oxide) tablet Take 1 tab by mouth daily 2019 active Not Available Not Available Not Avai lable Albuterol Sulfate HFA 90 mcg/Actua tion aerosol inhaler 2 PUFFS QID PRN WHEEZING 02/10 completed Not Available Not Available Not Available Darvocet- N 100 1-2 .at bedtime sore throat 11/16 completed Not Available Not Available Not Available Vitamin D 1 qd 2009 active Not Available Not Available Not Avai lable fluticaso ne propion-s almeterol INH daily 02/09 completed Not Available Not Available Not Available cholecalc iferol (vitamin D3) 25 mcg (1,000 unit) tablet Take 1 tablet by mouth once a day 2023 active Not Available Not Available Not Avai lable omeprazol e 20 mg tablet,de layed release Take 1 tablet by mouth daily 07/25 completed filled 01/19/15 Not Available Not Available Not Available Vitals Date Recorded Body weight Body temperature Respiratory rate Body mass index (BMI) Body height Systolic blood pressure Diastolic blood pressure Provider Name and Address Organization Details Last Updated DateTime 3 04452.1 5 g 97.3 [degF] 18 /min 31.6 kg/m2 153.42 cm 120 mm[Hg] 80 mm[Hg] BRITNEY WILLIAMSON LPN [facility] 3 09:30:40 Date Recorded Body height Body mass index (BMI) Body weight Body temperature Respiratory rate Heart rate Systolic blood pressure Diastolic blood pressure Provider Name and Address Organization Details Last Updated DateTime 4 153.42 cm 30.8 kg/m2 32135.7 8 g 97.7 [degF] 16 /min 64 /min 122 mm[Hg] 78 mm[Hg] BRITNEY WILLIAMSON LPN [facility] 4 13:55:15 Social History Question Answer Notes LastModified by Organizat ion Details LastModified Time Tobacco Smoking Status Never Smoker BRITNEY WILLIAMSON LPN [facility], [place] - [facility]. 10/07/2023 09:28:29 Would You Say That, In General, Your Health Is Good Information not available 10/07/2023 How Often Does Anyone, Including Family, Physically Hurt You? Never Information not available 10/07/2023 How Often Does Anyone, Including Family, Insult Or Talk Down To You? Never Information no t available 10/07/2023 How Often Does Anyone, Including Family, Threaten You With Harm? Never Information not available 10/07/2023 How Often Does Anyone, Including Family, Scream Or Curse At You? Never Information not available 10/07/2023 Within The Past 12 Months, You Worried That Your Food Would Run Out Before You Got Money To Buy More. Never True Information n ot available 10/07/2023 Within The Past 12 Months, The Food You Bought Just Didn't Last And You Didn't Have Money To Get More. Never True Information n ot available 10/07/2023 How Hard Is It For You To Pay For The Very Basics Like Food, Housing, Medical Care, And Heating? Would You Say It Is: Not Hard At All Information not available 10/07/2023 In The Past 12 Months, Has Lack Of Reliable Transportation Kept You From Medical Appointments, Meetings, Work Or From Getting Things Needed For Daily Living? No Information not available 10/07/2023 What Is Your Housing Situation Today? I Have Housing. Information not available 10/07/2023 How Often In The Past Year Have You Used Marijuana (including Smoking, Vaping, Dabbing, Or Edibles)? Never Information not available 10/07/2023 How Often In The Past Year Have You Used Prescription Medications That Were Not Prescribed To You? Never Information n ot available 10/07/2023 How Often In The Past Year Have You Taken Your Own Prescription Medication More Than The Way It Was Prescribed Or For Different Reasons Than Its Intended Purpose? Never Information no t available 10/07/2023 How Often In The Past Year Have You Used Other Drugs (for Example, Heroin, Cocaine, Meth, Salvia, Inhalants)? Never Information not available 10/07/2023 Have You Ever Used IV Drugs? No Information not available 10/07/2023 What Matters Most To You? Family Information not available 10/07/2023 During The Past Four Weeks Has Your Physical And Emotional Health Limited Your Social Activities With Family And Friends, Neighbors, Or Groups? Slightly Information not available 10/07/2023 During The Past Four Weeks, Was Someone Available To Help You If You Needed And Wanted Help? (For Example, If You Munger Very Nervous, Lonely, Or Blue; Got Sick And Had To Stay In Bed; Needed Someone To Talk To; Needed Help With Daily Chores; Or Needed Help Just Taking Care Of Yourself.) Yes- A Little Information n ot available 10/07/2023 During The Past Four Weeks, What Was The Hardest Physical Activity You Could Do For At Least 2 Minutes? Moderate Information not available 10/07/2023 Can You Get To Places Out Of Walking Distance Without Help? (For Example, Can You Travel Alone On Buses Or Taxis, Or Drive Your Own Car?) Yes Information not available 10/07/2023 Can You Go Shopping For Groceries Or Clothes Without Someone? s Help? Yes Information not available 10/07/2023 Can You Prepare Your Own Meals? Yes Information not available 10/07/2023 Can You Do Your Housework Without Help? Yes Information not available 10/07/2023 Because Of Any Health Problems, Do You Need The Help Of Another Person With Your Personal Care Needs Such As Eating, Bathing, Dressing, Or Getting Around The House? No Information not available 10/07/2023 Can You Handle Your Own Money Without Help? Yes Information not available 10/07/2023 Are You Having Difficulties Driving Your Car? No Information no t available 10/07/2023 Do You Always Fasten Your Seat Belt When You Are In A Car? Yes- Usually Information not available 10/07/2023 How Often During The Past Four Weeks Have You Been Bothered By Any Of The Following Problems? Falling Or Dizzy When Standing Up? Often Information not available 10/07/2023 Sexual Problems? Never Informat ion not available 10/07/2023 Trouble Eating Well? Often Information not available 10/07/2023 Teeth Or Denture Problems? Never Information not available 10/07/2023 Problems Using The Telephone? Never Information not available 10/07/2023 Tiredness Or Fatigue? Often Information not available 10/07/2023 Have You Had 2 Or More Falls Or Sustained An Injury With A Fall In The Last Year? No Information no t available 10/07/2023 Do You Have Difficulty With Walking Or Balance? No Information not available 10/07/2023 Do You Currently Use A Hearing Device? Yes Information not available 10/07/2023 Do You Currently Have Any Trouble With Your Vision? No Information no t available 10/07/2023 Do You Exercise For About 20 Minutes Three Or More Days A Week? Yes- Some Of The Time Information not available 10/07/2023 Are There Any Safety Concerns In Your Home (see Attached CDC Pamphlet)? No Information not available 10/07/2023 How Often Do You Have Trouble Taking Medicines The Way You Have Been Told To Take Them? I Always Take Them As Prescribed Information not available 10/07/2023 How Confident Are You That You Can Control And Manage Most Of Your Health Problems? Somewhat Confident Information not available 10/07/2023 Do You Currently Have Any Difficulty With Your Hearing? Yes Information not available 10/07/2023 What Was The Date Of Your Most Recent Tobacco Screening? 02/10/2024 Information not available 02/10/2024 Has Tobacco Cessation Counseling Been Provided? No Information not available 10/07/2023 Do You Or Have You Ever Used Any Other Forms Of Tobacco Or Nicotine? No Information not available 10/07/2023 Sex: Female Functional Status None recorded. Mental Status None recorded. Family History Relationship Description Onset Age of this Age Resolved Age Notes Mother Heart disease Mother Hypertensive disorder Mother Hyperlipidemia Maternal Grandfather Cerebrovascular disease 68 Medical History No medical history recorded. Gynecological HistoryNo gynecological history recorded. Obstetrics History GPAL:G 0 P 0 0 0 0 Immunizations Vaccine Type Date Status Provider Name and Address Organization Details Recorded Time Tdap 08/13/2011 completed Not Available [facility] 04:09:25 Tdap 09/29/2021 completed Not Available [facility] 04:09:25 zoster live 02/27/2008 completed Not Available [facility] 08/30/2023 04:09:25 Td(adult) unspecified formulation 01/19/2003 completed Not Available [facility] 08/30/2023 04:09:25 Influenza, split virus, trivalent, preservative 07/22/2015 completed Not Available [facility] 08/30/2023 04:09:25 Influenza, split virus, quadrivalent, preservative 08/01/2018 completed Not Available [facility] 08/30/2023 04:09:26 zoster recombinant 11/21/2020 completed Not Available [facility] 08/30/2023 04:09:26 zoster recombinant 09/22/2020 completed Not Available [facility] 08/30/2023 04:09:27 Influenza, high-dose, quadrivalent, PF 08/22/2020 completed Not Available [facility] 08/30/2023 04:09:27 COVID-19, mRNA, LNP-S, PF, 100 mcg/0.5mL dose or 50 mcg/0.25mL dose 12/08/2020 completed Not Available [facility] 08/30/2023 04:09:27 COVID-19, mRNA, LNP-S, PF, 100 mcg/0.5mL dose or 50 mcg/0.25mL dose 01/06/2021 completed Not Available [facility] 08/30/2023 04:09:27 COVID-19, mRNA, LNP-S, PF, 100 mcg/0.5mL dose or 50 mcg/0.25mL dose 03/30/2022 completed Not Available [facility] 08/30/2023 04:09:27 COVID-19, mRNA, LNP-S, PF, 100 mcg/0.5mL dose or 50 mcg/0.25mL dose 08/25/2021 completed Not Available [facility] 08/30/2023 04:09:28 SARS-COV-2 (COVID-19) vaccine, UNSPECIFIED 08/20/2022 completed Not Available [facility] 08/30/2023 04:09:28 pneumococcal polysaccharide PPV23 02/18/2003 completed Not Available [facility] 2022 04:09:28 pneumococcal polysaccharide PPV23 08/13/2011 completed Not Available [facility] 2022 04:09:28 influenza, unspecified formulation 07/24/2022 completed Not Available [facility] 08/30/2023 04:09:28 influenza, unspecified formulation 08/02/2016 completed Not Available [facility] 08/30/2023 04:09:29 COVID-19, mRNA, LNP-S, PF, 100 mcg/0.5mL dose or 50 mcg/0.25mL dose 08/20/2023 completed KATHRYN CRUZ, [facility] 10/07/2023 07:44:47 Influenza, high-dose, quadrivalent, PF 08/20/2023 completed KATHRYN CRUZ, [facility] 10/07/2023 07:46:00 Pneumococcal conjugate PCV 13 12/22/2014 completed BRITNEY WILLIAMSON LPN michelle, [facility] 10/07/2023 10:48:08 Past Encounters Encounter ID Performer Location Encounter Start Date Encounter Closed Date Diagnosis/Indication Diagnosis SNOMED-CT Code [id number] LE GONZALEZ MD [address] [place] [place] [address] 10/07/2023 09:19:23 10/07/2023 11:50:48 Adult health examination [id number] Screening mammography 24 025458 Benign ess ential hypertension 8785649 Prediabetes 146056305 Hypothyroidism 97056273 [id number] LE GONZALEZ MD [facility] [place] [address] 02/10/2024 13:41:04 02/10/2024 14:33:12 Irritable bowel syndrome 28226525 Health Concerns Section Related Observation LastModified by Organization Detai ls LastModified Time None Recorded Concern Status LastModified by Organization Details LastModified Time None Recorded Advance Directives Directive None Recorded Payers Encounter Date Sequence Insurance Name Policy Number Policy Vasquez Covered Member ID Vasquez Member ID Guarantor Name 10/07/2023 2 [employer] (MEDICARE SUPPLEMENT) Mary Trevino [id number] Mary Trevino 10/07/2023 1 MEDICARE [place]: [facility] Mary Trevino [id number] Mary Trevino 02/10/2024 2 [employer] (MEDICARE SUPPLEMENT) Mary Trevino [id number] Mary Trevino 02/10/2024 1 [place] [facility] Mary Trevino [id number] Mary Trevino Notes Date Note Type Note Provider Name and Address Organization Details Recorded Time 10/07/2023 text/html HPI Notes: Medic are Annual Wellness Visit Reported by patient. Diet and Nutrition: follows recommended diet (lots of fruits and vegetables.) Fracture Risk: no history of fractures Physical Activity: exercises on a regular basis (tries to walk 2-3 times per week. Is doing PT currently.) HTN- Does not check BP at home, but does take meds reliably. H/O pneumonitis- quiet for years. Urinary stress incontinence- occasional dribbling. Hypothyroid- Due for repeat labs., Hyperlipidemia-takes statin. Insomnia- Takes melatonin OTC. Getting outside and doing things helps her to sleep better! Sciatica- Prediabetes-She had surgery on left heel, it is finally getting better. She spent a lot of time at home as she could not walk on it. So she nibbled a lot. This would explain her 4 pounds weight gain. She has been out the past 2 weeks getting exercise once again. Denies Chest pain, SOB, FORRESTER or visual issues. LE GONZALEZ MD [address], [place], [address], [place] - [facility]. 10/07/2023 13:08:08 02/10/2024 text/html HPI Notes: GI symptoms, intermittent issues with cramping or increased pain with bowel movements. miralax does help with daily BM's. She has had 4 bouts in the last few months with cramping and diarrhea, one episodes had her on the floor bent over in pain. The other 3 not quite as bad. these last about 30 minutes. Pain followed by diarrhea, 3 for episodes. In between these bouts she takes miralax one dose every morning and has a BM most days, no pellets. Wears a pad as she does have some stool leakage. Does note some mucous in her stools. Perhaps eating more deserts lately. Has lost a few pounds but no significant weight loss She bought a book about what to eat and what not to eat, perhaps related to FODMAP diet. Energy and appetite are fine. No symtpoms for the last week or two. Last colonoscopy was in 07/2010- diverticulosis and hyperplastic polyp. Patient went to [facility] for eyes, and was dx with migraine aura. LE GONZALEZ MD [address], [place], [address], [facility]. 02/10/2024 14:34:28 OBGyn Episode No OBEpisode recorded.
--- OUTSIDE RECORDS SUMMARY | 2024-06-12 20:55 | XMS_ITS | Encounter Summary ---
Author Organization [facility] Address [address] [place] [address] Care Team Providers Care Mixing Machine Operator Name Role Phone Unavailable Primary Care Provider Unavailabl e Encounter Details Date Type Department Care Team (Late st Contact Info) Description 08/18/2008 Before PRISM Converted Visit (Maple) [facility] - Maple conversion [address] [place] [address] Le Gonzalez MD [address] [address] Social History Tobacco Use Types Packs/Day Years Used Date Smoking Tobacco: Never Assessed Sex and Gender Information Value Date Recorded Sex Assigned at Not on file Gender Identity Not on file Sexual Orientation Not on file documented as of this encounter Plan of Treatment Not on file documented as of this encounter Procedures Procedure Name Priority Date/Time Associated Diagnosis Comments CYTOPATHOLOGY Routine 08/18/2008 0:00 EDT documented in this encounter Results * CYTOPATHOLOGY (08/18/2008 0:00 EDT) Pathology Report: CYTOPATHOLOGY REPORT ? Reports generated via electronic interface contain original data; ? however they are lacking the format of the original report. ? Caution should be taken when reading/interpreti ng unformatted reports. ? Name: ? MARY TREVINO S ? Accession #: ? [id number] ? : ? 1945 (Age: 63) ??F ?Collect Date: ? 08/18/2008 ? Location: ? [facility] ? Receive Date: ? 08/19/2008 ? Provider: ?LE GONZALEZ MD ? Copy to: ? Specimen/Source: ?Pap Test, Cervix/Endocervix, ThinPrep Imaging System ? with manual evaluation ? Last Menstrual Period: ? '80s ? Other: ? HPVA - HPV testing requested if ASC-US on the current ThinPrep Pap test. ? SPECIMEN ADEQUACY ? Satisfactory for Evaluation ? - assessment of transformation zone component not applicable ( e.g. atrophy, ? vaginal sample, hysterectomy) ? GENERAL CATEGORIZATION ? Negative for Intraepithelial Lesion or Malignancy ? Document reviewed and electronically signed by: ? Aissatou Amanda, CT(ASCP) ? Report Date: ??08/24/2008 08:27 ? End of Report ? [facility] 08/18/2008 08/19/2008 Le Gonzalez MD PATHOLOGY ORDERABLES [facility] [address] [place] [address] documented in this encounter Visit Diagnoses Not on filedocumented in this encounter
--- OUTSIDE RECORDS SUMMARY | 2024-06-12 20:55 | XMS_ITS | Encounter Summary ---
Author Organization [facility] Address [address] [place] [address] Care Team Providers Care Client Retention Specialist Name Role Phone Le Gonzalez MD Primary Care Provider [phone] Encounter Details Date Type Department Care Team (Late st Contact Info) Description 02/13/2007 Results Only [facility] - Maple conversion [address] [place] [address] Le Gonzalez MD [address] [address] Social History Tobacco Use Types [...] Priority Date/Time Associated Diagnosis Comments CYTOPATHOLOGY Routine 02/13/2007 0:00 EDT documented in this encounter Results * CYTOPATHOLOGY (02/13/2007 0:00 EDT) Pathology Report: CYTOPATHOLOGY REPORT Reports generated via electronic interface contain original data; however they are lacking the format of the original report. Caution should be taken when reading/interpreti ng unformatted reports. Name: ? MARY TREVINO ? Accession #: ? [id number] : ? 1945 (Age: 61) ??F ?Collect Date: ? 02/13/2007 Location: ? [facility] ? Receive Date: ? 02/14/2007 Provider: ?LE GONZALEZ MD Copy to: ? Specimen/Source: ?ThinPrep Pap Test, Cervix/Endocervix, processed on [facility] ThinPrep Imaging System, with manual evaluation Last Menstrual Period: ? Menstrual/Pregnanc y Status: ? Menopausal: 1979' Other: ? HPVA - HPV testing requested if ASC-US on the current ThinPrep Pap test. ? SPECIMEN ADEQUACY ? Satisfactory for Evaluation - transformation zone component present GENERAL CATEGORIZATION ? Negative for Intraepithelial Lesion or Malignancy ? Document reviewed and electronically signed by: ? YOON Irene(ASCP) ? Report Date: ??02/19/2007 08:58 End of Report [facility] 02/13/2007 02/14/2007 Le Gonzalez MD PATHOLOGY ORDERABLES [facility] [address] [place] [address] documented in this encounter Visit Diagnoses Not on filedocumented in this encounter Care Teams Client Retention Specialist Relationship Specialty Start Date End Date Le Gonzalez MD [address] [place] [id number] PCP - General 11/24/09 documented as of this encounter
--- OUTSIDE RECORDS SUMMARY | 2024-06-12 20:55 | XMS_ITS | Encounter Summary ---
Author Organization [facility] Address [address] [place] [address] Care Team Providers Care Research Management Associate Name Role Phone Le Thompson MD Primary Care Provider [phone] Encounter Details Date Type Department Care Team (Late st Contact Info) Description 06/07/2020 Lab Requisition [facility] Pathology & Laboratory Medicine - [address] [address] Mynor Awan PA [address] [place] [address] [address] [place] [phone] Neoplasm of unspecified behavior of bone, soft tissue, and skin Social History Tobacco Use Types Packs/Day Years [...] Procedure Name Priority Date/Time Associated Diagnosis Comments SURGICAL PATHOLOGY Today 06/06/2020 13 :22 EDT Neoplasm of unspecified behavior of bone, soft tissue, and skin documented in this encounter Results * SURGICAL PATHOLOGY (06/06/2020 13:22 EDT) Final Diagnosis A. SKIN OF THIGH, RIGHT, SHAVE BIOPSY: - Seborrheic keratosis, inflamed. 06/08/2020 10:36 [facility] Attestation By the signature below, the attending physician certifies that they have 1) personally conducted a gross and/or microscopic examination of the described specimen(s), and/or personally interpreted the results of laboratory testing of the described specimen(s), and 2) personally rendered or confirmed the above diagnosis. 06/08/2020 10:36 [facility] at 1036 Clinical History Skin lesion; clinical diagnosis code: D49.2 06/08/2020 10:36 [facility] Gross Description A. Received in formalin labelled with proper patient identification (initials F, J) and right thigh skin is an irregular skin shave, 1.2 x 0.9 x 0.1 cm. The majority of the skin surface shows a protruding firm multilobulated lesion, 0.9 x 0.8 cm and elevated to a height of 0.4 cm. The margin is inked. Trisected and entirely submitted in A1. Gypsy Belle 06/07/2020 16:49 06/08/2020 10:36 [facility] Performing Lab [facility] 06/08/2020 10:36 [facility] Scanned Images 06/08/2020 10:36 [facility] Tissue TISSUE SPECIMEN FROM SKIN / Unknown 06/06/2020 13:22 EDT 06/07/2020 16:42 EDT Mynor CEDILLO PATHOLOGY ORDERABL ES [facility] [address] [place] [address] documented in this encounter Visit Diagnoses Diagnosis Neoplasm of unspecified behavior of bone, soft tissue, and skin documented in this encounter Care Teams Research Management Associate Relationship Specialty Start Date End Date Le Thompson MD [address] [place] [phone] PCP - General 11/24/09 documented as of this encounter
--- OUTSIDE RECORDS SUMMARY | 2024-06-12 20:55 | XMS_ITS | Encounter Summary ---
Author Organization [facility] Address [address] [place] [address] Care Team Providers Care Payroll Services Analyst Name Role Phone Le Gonzalez MD Primary Care Provider [phone] Encounter Details Date Type Department Care Team (Late st Contact Info) Description 09/15/2018 Results Only [facility] [phone] Pilar Peterson, [address] [place], [place] [id number] Social History Tobacco Use Types Packs/Day Years Used Date Smoking Tobacco: Never Assessed Sex and Gender Information Value Date Recorded Sex Assigned at Not on file Gender Identity Not on file Sexual Orientation Not on file documented as of this encounter Plan of Treatment Not on file documented as of this encounter Procedures Procedure Name Priority Date/Time Associated Diagnosis Comments SURGICAL PATHOLOGY Routine 09/15/2018 8:33 EST documented in this encounter Results * SURGICAL PATHOLOGY (09/15/2018 8:33 EST) Pathology Report: SURGICAL PATHOLOGY REPORT Reports generated via electronic interface contain original data; however they are lacking the format of the original report. Caution should be taken when reading/interpreting unformatted reports. Name: ? MARY TREVINO ? Accession #: ? [id number] ? : ? 1945 (Age: 73) ??F ? Collect Date: ? 09/15/2018 ? Location: ? [facility] ? Receive Date: ? 09/16/2018 ? Provider: PILAR PETERSON DO Copy to: LE GONZALEZ MD ? Final Pathologic Diagnosis: SKIN OF POPLITEAL FOSSA, RIGHT, SHAVE BIOPSY: - Superficial portion of endophytic squamous proliferation. See comment. - Lesion is transected at biopsy base. Comment: The biopsy is largely composed of orthohyperkeratosis and parakeratosis. Underlying this is an endophytic squamous proliferation. Overt cytologic atypia is not noted. Considerations could include a superficial portion of a seborrheic keratosis. However, as only a superficial portion of the epidermis is sampled, a more worrisome process cannot entirely be excluded. Deeper levels have been examined. (Dr. Humphreys)/jds Document reviewed and electronically signed by: SURAJ HUMPHREYS MD Report ??Date: 09/17/2018 14:24 By the signature above, the attending physician certifies that he/she has personally conducted a gross and/or microscopic examination of the described specimens and rendered or confirmed the above diagnosis. Specimen(s) Received: Right popliteal fossa Clinical History: Non-healing skin lesion; fax results to [phone] Gross Description: ? Received in formalin labelled with proper patient identification (initials F, J) and right popliteal fossa is a shave biopsy of pale chavez skin (0.8 x 0.7 x 0.1 cm). There is an eccentric chavez and speckled brown crusted papule that measures 0.7 x 0.6 x 0.3 cm. The margin is inked blue. The specimen is trisected and submitted entirely in 1. Kelly Benton 09/16/2018 10:08 AM End of Report [facility] 09/15/2018 8:33 EST 09/16/2018 8:33 EST Pilar Peterson DO PATHOLOGY ORDER SEPIDEH [facility] [address] [place] [address] documented in this encounter Visit Diagnoses Not on filedocumented in this encounter Care Teams Payroll Services Analyst Relationship Specialty Start Date End Date Le Gonzalez MD [address] [place] [phone] PCP - General 11/24/09 documented as of this encounter
--- OUTSIDE RECORDS SUMMARY | 2024-06-12 20:55 | XMS_ITS | Encounter Summary ---
Author Organization [facility] Address [address] [place] [address] Care Team Providers Care Supervisor Green End Department Name Role Phone Le Gonzalez MD Primary Care Provider [phone] Encounter Details Date Type Department Care Team (Late st Contact Info) Description 09/26/2018 Results Only [facility] [phone] Mynor Awan [address] [place] [phone] Social History Tobacco Use Types Packs/Day Years Used Date Smoking Tobacco: Never Assessed Sex and Gender Information Value Date Recorded Sex Assigned at Not on file Gender Identity Not on file Sexual Orientation Not on file documented as of this encounter Plan of Treatment Not on file documented as of this encounter Procedures Procedure Name Priority Date/Time Associated Diagnosis Comments SURGICAL PATHOLOGY Routine 09/26/2018 15 :29 EST documented in this encounter Results * SURGICAL PATHOLOGY (09/26/2018 15:29 EST) Pathology Report: SURGICAL PATHOLOGY REPORT Reports generated via electronic interface contain original data; however they are lacking the format of the original report. Caution should be taken when reading/interpreting unformatted reports. Name: ? MARY TREVINO ? Accession #: ? [id number] ? : ? 1945 (Age: 73) ??F ? Collect Date: ? 09/26/2018 ? Location: ? [facility] ? Receive Date: ? 09/29/2018 ? Provider: MYNOR CEDILLO Copy to: LE GONZALEZ MD ? Final Pathologic Diagnosis: SKIN OF POPLITEAL FOSSA, RIGHT, RESHAVE BIOPSY: - Atypical endophytic squamous proliferation and reparative changes. ??See microscopic. Comment: The histologic findings are those of an atypical endophytic squamous proliferation which is transected at its base. ??The adjacent epidermis and dermis show reactive changes, consistent with prior biopsy. ??Cytologic atypia is focal. ?? Given that the base of the proliferation is not well visualized, definitive classification of the squamous proliferation cannot be made. Engineer Assistant slides of this case were reviewed at intradepartmental consultation conference. ??(Dr. Higginbotham)/[facility] Microscopic Description: The shave biopsy from the right popliteal fossa shows an acanthotic and endophytic squamous proliferation. ??The adjacent stroma shows fibrosis, chronic inflammation and reactive changes. ??The epidermis shows irregular acanthosis with atypical nests within the superficial dermis. ??Cytologic atypia is appreciated in areas. ??The base of the endophytic proliferation is not well visualized. ??(Dr. Higginbotham)/[facility] Document reviewed and electronically signed by: MOIZ HIGGINBOTHAM MD Report ??Date: 10/01/2018 14:25 By the signature above, the attending physician certifies that he/she has personally conducted a gross and/or microscopic examination of the described specimens and rendered or confirmed the above diagnosis. Specimen(s) Received: Reshave right popliteal fossa Clinical History: Endophytic squamous proliferation; fax results to ; clinical diagnosis code: ??D49.2 Gross Description: ? Received in formalin labelled with proper patient identification (initials F, J) and reshave right popiteal is a shave biopsy of chavez-guzman skin (1.3 x 1.0 x 0.1 cm). There is a central chavez-yellow to brown encrusted raised focus (0.8 x 0.5 x 0.1 cm) located on the skin surface. The margin is inked blue. The tissue is serially sectioned and entirely submitted in 1 and 2. MAMADOU Coy (ASCP) 09/29/2018 4:06 PM End of Report [facility] 09/26/2018 15:2 9 EST 09/29/2018 15:29 EST Mynor CEDILLO PATHOLOGY ORDERABL ES [facility] [address] [place] [address] documented in this encounter Visit Diagnoses Not on filedocumented in this encounter Care Teams Supervisor Green End Department Relationship Specialty Start Date End Date Le Gonzalez MD [address] [place] [phone] PCP - General 11/24/09 documented as of this encounter
--- OUTSIDE RECORDS SUMMARY | 2024-06-12 20:55 | XMS_ITS | Encounter Summary ---
Author Organization [facility] Address [address] [place] [address] Care Team Providers Care Medical Support Assistant Name Role Phone Le Thompson MD Primary Care Provider [phone] Encounter Details Date Type Department Care Team (Late st Contact Info) Description 01/30/2019 Results Only [facility] [phone] Pilar Peterson, [address] [place], [place] [address] Social History Tobacco Use Types Packs/Day Years Used Date Smoking Tobacco: Never Assessed Sex and Gender Information Value Date Recorded Sex Assigned at Not on file Gender Identity Not on file Sexual Orientation Not on file documented as of this encounter Plan of Treatment Not on file documented as of this encounter Procedures Procedure Name Priority Date/Time Associated Diagnosis Comments SURGICAL PATHOLOGY Routine 01/30/2019 16 :02 EDT documented in this encounter Results * SURGICAL PATHOLOGY (01/30/2019 16:02 EDT) Pathology Report: SURGICAL PATHOLOGY REPORT Reports generated via electronic interface contain original data; however they are lacking the format of the original report. Caution should be taken when reading/interpret ing unformatted reports. Name: ? MARY TREVINO ? Accession #: ? [id number] ? : ? 1945 (Age: 73) ??F ? Collect Date: ? 01/30/2019 ? Location: ? [facility] ? Receive Date: ? 02/02/2019 ? Provider: PILAR PETERSON DO Copy to: ? Final Pathologic Diagnosis: SKIN OF POPLITEAL FOSSA, RIGHT, EXCISION: - Epidermal reparative change and dermal scar, consistent with biopsy site. - No residual atypical endophytic squamous proliferation identified. Microscopic Description: The epidermis shows reparative changes with effacement of the rete ridge pattern. ??The underlying dermis has fibrosis with fibroblasts and collagen bundles oriented parallel to the epidermis. ??There is a reactive vascular pattern. ??(Dr. Cooper)/jds Document reviewed and electronically signed by: MEGAN COOPER MD Report ??Date: 02/03/2019 13:53 By the signature above, the attending physician certifies that he/she has personally conducted a gross and/or microscopic examination of the described specimens and rendered or confirmed the above diagnosis. 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 Received in formalin labelled with proper patient identification (initials F, J) and popliteal fossa right formal excision is an oriented elliptical skin, 2.4 x 0.8 cm and excised to a depth of 0.4 cm. A white stitch denotes 3 o'clock, a green stitch denotes 6 o'clock, and a black stitch denotes 9 o'clock. The central skin surface shows a faint area of possible scarring. The margins are inked with blue representing the 12 o'clock side margin and black representing the 6 o'clock side margin. The specimen is serially sectioned and entirely submitted as follows: BLOCK BARBOSA 1- ??9 o'clock tip, reverse en face 2-3- ??six consecutive central sections 4- ??3 o'clock tip, reverse en face MAMADOU Marin (ASCP) 02/02/2019 4:27 PM End of Report [facility] 01/30/2019 16:0 2 EDT 02/02/2019 16:02 EDT Pilar Peterson DO PATHOLOGY ORDER SEPIDEH [facility] [address] [place] [address] documented in this encounter Visit Diagnoses Not on filedocumented in this encounter Care Teams Medical Support Assistant Relationship Specialty Start Date End Date Le Thompson MD [address] [place] [phone] PCP - General 11/24/09 documented as of this encounter
--- OUTSIDE RECORDS SUMMARY | 2024-06-12 20:55 | XMS_ITS | Encounter Summary ---
Author Organization [facility] Address [address] [place] [address] Care Team Providers Care Systems Administrator Name Role Phone Unavailable Primary Care Provider Unavailabl e Encounter Details Date Type Department Care Team (Late st Contact Info) Description 10/04/2008 Before PRISM Converted Visit (Maple) [facility] - Maple conversion [address] [place] [address] Seb Sherman MD [address] [place] [phone] Social History Tobacco Use Types Packs/Day Years Used Date Smoking Tobacco: Never Assessed Sex and Gender Information Value Date Recorded Sex Assigned at Not on file Gender Identity Not on file Sexual Orientation Not on file documented as of this encounter Plan of Treatment Not on file documented as of this encounter Procedures Procedure Name Priority Date/Time Associated Diagnosis Comments SURGICAL PATHOLOGY Routine 10/04/2008 0:00 EST documented in this encounter Results * SURGICAL PATHOLOGY (10/04/2008 0:00 EST) Pathology Report: SURGICAL PATHOLOGY REPORT ? Reports generated via electronic interface contain original data; ? however they are lacking the format of the original report. ? Caution should be taken when reading/interpreting unformatted reports. ? Name: ? EVAN, MARY S ? Accession #: ? [id number] ? : ? 1945 (Age: 63) ??F ? Collect Date: ? 10/04/2008 ? Location: ? [facility] ? Receive Date: ? 10/06/2008 ? Provider: SEB SHERMAN MD ? Copy to: MADELINE VILLAR MD ? JULIA CARLOS MD ? Final Pathologic Diagnosis: ? A. ?Lung, right middle lobe, wedge biopsy: ? 1. ?Chronic, interstitial pneumonia with non-necrotizing granulomas and focal organizing pneumonia. ??See comment. ? 2. ? Acid fast and fungal stains are negative. ? B. ?? Lung, right lower lobe, wedge biopsy: ? 1. ?? Chronic interstitial pneumonia with non-necrotizing granulomas and ? focal organizing ?pneumonia. ? 2. ?? Acid fast and fungal stains are negative ? Comment: ? Sections from both the right middle lobe (A) and right lower lobe (B) ? exhibit similar findings. ??There is chronic interstitial inflammation and there are numerous non-necrotizing interstitial granulomas. ??In addition to the ? interstitial disease, there is focal, organizing pneumonia and foci of foamy ? macrophages indicating an element of obstruction. ??There are only a few ? interstitial eosinophils and only very rare foci of intraalveolar fibrin. ??We do not identify interstitial fibrosis and there is no honeycomb pattern observed. ?? No food particles are identified. ??Under polarized light, there are rare ? needle-like polarizable crystals that are present in foreign body giant cells ?? and the pleura, where they are associated with some anthracotic pigment. ??The ?? paucity of this material suggests these may represent inhaled silicates. ??They ?? are not uniformly associated with the granulomas, which are numerous, and are ?? not an adequate explanation for the granulomas. ? Immunohistochemical staining was performed to further characterize the ? interstitial infiltrates. ??Positive and negative controls stained appropriately. ? Block ?Antibody (Clone) ? Result ? A2 ?CD1a (010, Dako) ? Negative ? A2 ?CD68 (KP1)(KP1, Dako) ?Positive ? The immunohistochemical stains confirm that the mononuclear interstitial cells ?? are macrophages and not Langerhans cells. ??Bacteria are not identified on acid ?? fast bacterial stains (A2, A4, B1, B2) in the sections examined. ??A PAS stain ?? with amylase (A2) is negative for fungal organisms. ??Silver stains (A4, B1, B2) are negative for fungal organisms. ? The primary differential diagnosis, considering the constellation of findings ?? present, is chronic hypersensitivity pneumonia. ??This would include so-called ?? hot tub lung in addition to the larger variety of agents that can also induce hypersensitivity pneumonia. ??Clinical correlation is essential as well as ? correlation with any results from microbial cultures. ??Dr. Katie David has ? reviewed the histologic sections from this case and agrees with the histologic ?? findings and differential diagnosis. ??The findings have been discussed with Dr. Madeline Villar on October 12, 2008. ??(Dr. Martinez)/mpl ? NOTE: ??One or more of the reagents used in immunohistochemical testing in this case may not have been cleared or approved by the U.S. Food and Drug ? Administration (FDA). ??The FDA has determined that such clearance or approval is not necessary. ??These tests are used for clinical purposes. ??They should not be regarded as investigational or for research. ??These reagents' ??performance ? characteristics have been determined by [facility]. ??This ? laboratory is certified under the Clinical Laboratory Improvement Amendments of 1988 (CLIA-88) as qualified to perform high complexity clinical laboratory ? testing. ? Document reviewed and electronically signed by: ? Jelani Martinez MD ? Report ??Date: 10/12/2008 16:07 ? By the signature above, the attending physician certifies that he/she has ? personally conducted a gross and/or microscopic examination of the described ? specimens and rendered or confirmed the above diagnosis. ? Specimen(s) Received: ? A. ?RML bx ? B. ? RLL bx ? Clinical History: ? Bilateral ground-glass opacities by CT, dyspnea, with similar sx ?? and x-ray; endoscopically normal lung ? Gross Description: ? Received in formalin labelled Trevino and right middle lobe is a piece ?? of lung tissue measuring 3.5 x 1.2 x 0.5 cm with a staple line at one end. ??The surface of the tissue appears chavez-purple, smooth and glistening. ??There is a ? focal area of white-chavez soft tissue at one end of the specimen measuring 1.2 x ?? 1.2 x 0.3 cm. ??The staple line is removed and the cut surface is inked red. ??The specimen is serially sectioned and submitted as (A1) and (A2). ? Received in formalin labelled Ruma and right lower lobe is a piece of lung tissue with a staple line at one end measuring 3.0 x 1.1 x 0.3 cm. ??The outer ?? surface is chavez-brown, smooth and glistening. ??Sectioning reveals a white-chavez cut surface with no nodules identified. ??The staple line is removed and the cut ? surface is inked red. ??The specimen is submitted entirely as (B1) to (B3). ??(Dr. Newman)/jolanta ? End of Report ? [facility] 10/04/2008 10/06/2008 9:0 8 EST Seb Sherman MD PATHOLOGY ORDERABLES [facility] [address] [place] [address] documented in this encounter Visit Diagnoses Not on filedocumented in this encounter
--- OUTSIDE RECORDS SUMMARY | 2024-06-12 20:55 | XMS_ITS | Encounter Summary ---
Author Organization [facility] Address [address] [place] [address] Care Team Providers Care Fleet Service Manager Name Role Phone Le Thompson MD Primary Care Provider Encounter Details Date Type Department Care Team (Latest Contact Info) Description 09/26/2018 14:26 EST - 09/26/2018 23:59 EST Hospital Encounter [address] [address] Unknown, Provider, Discharge Disposition: Home or Self Care Social History Tobacco Use Types Packs/Day Years Used Date Smoking Tobacco: Never Assessed Sex and Gender Information Value Date Recorded Sex Assigned at Not on file Gender Identity Not on file Sexual Orientation Not on file documented as of this encounter Discharge Disposition Disposition Code Departure Means Destination Home or Self Jail documented in this encounter Plan of Treatment Not on file documented as of this encounter Visit Diagnoses Not on filedocumented in this encounter Care Teams Fleet Service Manager Relationship Specialty Start Date End Date Le Thompson MD [address] [place] [phone] PCP - General 11/24/09 documented as of this encounter
--- OUTSIDE RECORDS SUMMARY | 2024-06-12 20:55 | XMS_ITS | Encounter Summary ---
Author Organization [facility] Address [address] [place] [address] Care Team Providers Care Hand Heel Seat Fitter Name Role Phone Unavailable Primary Care Provider Unavailabl e Encounter Details Date Type Department Care Team (Late st Contact Info) Description 11/22/2009 Orders Only [facility] [address] [place], [place] [address] Magdi Trevino, DO [address] [facility] ,[address] [place], [place] [phone] Social History Tobacco Use Types Packs/Day Years Used Date Smoking Tobacco: Never Assessed Sex and Gender Information Value Date Recorded Sex Assigned at Not on file Gender Identity Not on file Sexual Orientation Not on file documented as of this encounter Plan of Treatment Not on file documented as of this encounter Procedures Procedure Name Priority Date/Time Associated Diagnosis Comments SURGICAL PATHOLOGY Routine 11/22/2009 0:00 EST documented in this encounter Results * SURGICAL PATHOLOGY (11/22/2009 0:00 EST) Pathology Report: SURGICAL PATHOLOGY REPORT ? Reports generated via electronic interface contain original data; ? however they are lacking the format of the original report. ? Caution should be taken when reading/interpreti ng unformatted reports. ? Name: ? MARY TREVINO S ? Accession #: ? [id number] ? : ? 1945 (Age: 64) ??F ? Collect Date: ? 11/22/2009 ? Location: ? [facility] ? Receive Date: ? 11/23/2009 ? Provider: MAGDI TREVINO DO ? Copy to: JULIA GONZALEZ MD ? Final Pathologic Diagnosis: ? Colon, hepatic flexure, polyp, biopsies: ? - Fragments of hyperplastic polyp. ? - No adenomatous mucosa identified. ? Document reviewed and electronically signed by: ? Soy Martines, MD ? Report ??Date: 11/24/2009 15:17 ? By the signature above, the attending physician certifies that he/she has ? personally conducted a gross and/or microscopic examination of the described ? specimens and rendered or confirmed the above diagnosis. ? Specimen(s) Received: ? Polyp hepatic flexure ? Clinical History: ? Colorectal screen ? Gross Description: ? Received in Shea's fixative labelled Mary Trevino and #1 polyp hepatic flexure are four biopsies which vary in size from 0.2 x 0.2 x 0.1 cm up to 0.3 x 0.2 x 0.2 cm. ??The specimens are submitted intact as (A1) and (A2). ? (HENRY Cavanaugh)/tammin ? End of Report ? [facility] 11/22/2009 11/23/2009 10: 14 EST Magdi Trevino DO PATHOLOGY ORDER SEPIDEH [facility] [address] [place] [address] documented in this encounter Visit Diagnoses Not on filedocumented in this encounter
--- OUTSIDE RECORDS SUMMARY | 2024-06-12 20:55 | XMS_ITS | Encounter Summary ---
Author Organization [facility] Address [address] [place] [address] Care Team Providers Care Group Insurance Specialist Name Role Phone Le Thompson MD Primary Care Provider [phone] Encounter Details Date Type Department Care Team (Latest Contact Info) Description 09/15/2018 15:38 EST - 09/15/2018 23:59 EST Hospital Encounter [address] [address] Unknown, Provider, Discharge Disposition: Home or Self Care Social History Tobacco Use Types Packs/Day Years Used Date Smoking Tobacco: Never Assessed Sex and Gender Information Value Date Recorded Sex Assigned at Not on file Gender Identity Not on file Sexual Orientation Not on file documented as of this encounter Discharge Disposition Disposition Code Departure Means Destination Home or Self [facility] documented in this encounter Plan of Treatment Not on file documented as of this encounter Visit Diagnoses Not on filedocumented in this encounter Care Teams Group Insurance Specialist Relationship Specialty Start Date End Date Le Thompson MD [address] [place] [phone] PCP - General 11/24/09 documented as of this encounter
--- OUTSIDE RECORDS SUMMARY | 2024-06-12 20:55 | XMS_ITS | Encounter Summary ---
Author Organization [facility] Address [address] [place] [address] Care Team Providers Care Mines Inspector Name Role Phone Le Thompson MD Primary Care Provider [phone] Encounter Details Date Type Department Care Team (Latest Contact Info) Description 01/30/2019 13:07 EDT - 01/30/2019 23:59 EDT Hospital Encounter [address] [address] Unknown, Provider, Discharge Disposition: Home or Self Care Social History Tobacco Use Types Packs/Day Years Used Date Smoking Tobacco: Never Assessed Sex and Gender Information Value Date Recorded Sex Assigned at Not on file Gender Identity Not on file Sexual Orientation Not on file documented as of this encounter Discharge Disposition Disposition Code Departure Means Destination Home or Self [facility] documented in this encounter Plan of Treatment Not on file documented as of this encounter Visit Diagnoses Not on filedocumented in this encounter Care Teams Mines Inspector Relationship Specialty Start Date End Date Le Thompson MD [address] [place] [phone] PCP - General 11/24/09 documented as of this encounter
[2024-06-12 20:59] LABS: ETHANOL BLOOD 8.4 mg/dL (<10)
[2024-06-12 21:01] LABS: PTT Activated 22.3 sec (23.6-32.8); Prothrombin Time 9.7 sec (9.1-11.1)
[2024-06-12 21:12] LABS: ALT 20 U/L (14-59); AST 22 U/L (15-37); Albumin 3.6 g/dL (3.4-5.0); Alkaline Phosphatase 75 U/L (46-116); Anion Gap 11.1 mmol/L (3-11); BUN 18 mg/dL (7-18); Bilirubin, Total 0.72 mg/dL (0.2-1.0); CO2 25.9 mmol/L (21.0-32.0); CREATININE 1.3 mg/dL (0.55-1.02); Calcium 9.4 mg/dL (8.5-10.1); Chloride 100 mmol/L (98-107); Estimated GFR 41.31 (mL/min/1.73m2); Glucose 143 mg/dL (74-106); Magnesium 2.2 mg/dL (1.8-2.4); NT-proBNP 129 pg/mL (<300); Potassium 3.9 mmol/L (3.5-5.1); Sodium 137 mmol/L (136-145); Total Protein 7.5 g/dL (6.4-8.2); Troponin I < 50 ng/L (< or =60)
--- NOTE | 2024-06-12 21:13 | DI.RAD_ITS ---
Exam(s) XR CHEST 1V IN DI DEPT EXAM: XR CHEST 1V IN DI DEPT CLINICAL HISTORY: SOB, Dizziness TECHNIQUE: 2D digital imaging was performed. COMPARISON: CR XR CHEST 2V PA LATERAL from 09/01/2018 FINDINGS: Exam is limited by poor pulmonary inflation and under penetration at the lung bases. Leads also over lie the chest. LUNGS: Clear. No pleural abnormality seen. HEART: Normal size. AORTA: Normal diameter. BONES: Unremarkable for age. Soft tissues: Unremarkable. IMPRESSION: Limited exam. No acute findings. DATA REPOSITORY: RADIATION DOSE DELIVERED:
--- NOTE | 2024-06-12 21:13 | DI.CT_ITS ---
Exam(s) CT HEAD WO EXAM: CT HEAD WO CLINICAL HISTORY: Dizziness,. TECHNIQUE: Imaging Protocol: Axial computed tomography images with coronal and sagittal reformatted images were created and reviewed COMPARISON: CT HEAD WITHOUT CONTRAST from 03/31/2017 FINDINGS: Ventricles and Extra axial spaces: Normal in size and morphology for the patient's age. Hemorrhage: None. Cerebral parenchyma: No evidence of acute infarct or mass. Minimal atrophy consistent with the juana ent's age. Minimal white matter changes of small vessel disease. Midline shift: None. Brainstem/Cerebellum: Normal. Calvarium: Normal. Visualized Paranasal sinuses:Clear. Mastoids: Clear. Soft Tissues: Unremarkable. ORBITS: Unremarkable. PITUITARY: Not enlarged. IMPRESSION: No acute intracranial process. RADIATION DOSE DELIVERED: Total DLP DATA REPOSITORY: All CT scans at this facility are submitted to the National Radiology Data Registry (NRDR) Dose Index Registry (DIR) with the [employer] ([employer]). RADIATION OPTIMIZATION: All CT scans at this facility use at least one of these dose optimization te chniques: automated exposure control; mA and/or kV adjustment per patient size (includes targeted exa ms where dose is matched to clinical indication); or iterative reconstruction.
[2024-06-12 21:30] LABS: COVID-19 PCR Negative (Negative); Influenza A PCR Negative (Negative); Influenza B PCR Negative (Negative); RSV PCR Negative (Negative)
--- NOTE | 2024-06-12 21:30 | DI.CT_ITS ---
Exam(s) CT CHEST PE CTA EXAM: CT CHEST PE CTA CLINICAL HISTORY: SOB, elevated Dimer. TECHNIQUE: Imaging Protocol: Axial CT angiography was performed with multi-slice acquisition and mu lti-planar reconstructions as well as axial, coronal and sagittal MIP reconstructions. CONTRAST MATERIAL: Intravenous: Omnipaque 350 Contrast volume:100 ml COMPARISON: CT CHEST HIGH RESOLUTION from 12/15/2008 CT CHEST HIGH RESOLUTION from 09/30/2009 CR,XR XR CHEST 1V IN DI DEPT from 06/12/2024 FINDINGS: Pulmonary Arteries: No evidence of filling defect to suggest pulmonary emboli. Tracheobronchial tree: No mucous plugging. Mediastinum and Leelee: No dominant adenopathy or fluid collection. Pulmonary parenchyma: Extremely limited evaluation due to expiratory changes. Question of bilateral diffuse ground-glass opacities. Pleura: No effusion or pneumothorax. Heart: The heart is not dilated. No coronary artery calcifications are seen. Aorta: Thoracic aorta non-dilated. No dissection. Upper abdomen: Inflammation seen around the pancreas. Status post cholecystectomy. No biliary dila tation. Parapelvic cyst right kidney. Kidneys partially included on the exam. Bones: Unremarkable for age. Tubes, Catheters, and Lines: None Soft tissues: Unremarkable. IMPRESSION: No evidence of pulmonary embolism. A evaluation of the lungs is limited due to expiratory changes. Bilateral ground-glass infiltrates a re suspected. Inflammation around the pancreas may indicate pancreatitis. Clinical correlation recommended. RADIATION DOSE DELIVERED: Total DLP DATA REPOSITORY: All CT scans at this facility are submitted to the National Radiology Data Registry (NRDR) Dose Index Registry (DIR) with the [employer] ([employer]). RADIATION OPTIMIZATION: All CT scans at this facility use at least one of these dose optimization te chniques: automated exposure control; mA and/or kV adjustment per patient size (includes targeted exa ms where dose is matched to clinical indication); or iterative reconstruction.
[2024-06-12] MEDS: Normal Saline 500 ML IV (21:33)
[2024-06-12 21:36] LABS: Source NASOPHARYNX
[2024-06-12 21:37] LABS: D-Dimer 1267 ng/mlFEU (<500)
[2024-06-12] MEDS: Omnipaque 350 MG/ML 100 ML BTL IJ (21:50)
[2024-06-12] MEDS: Normal Saline - Diluent 50 ML VIAL IJ (21:51)
--- NOTE | 2024-06-12 21:54 | DI.VRAD_ITS ---
PROCEDURE INFORMATION: Exam: CT Head Without Contrast Exam date and time: 06/12/2024 8:56 PM Age: 79 years old Clinical indication: Dizziness TECHNIQUE: Imaging protocol: Computed tomography of the head without contrast. Radiation optimization: All CT scans at this facility use at least one of these dose optimization techniques: automated exposure control; mA and/or kV adjustment per patient size (includes targeted exams where dose is matched to clinical indication); or iterative reconstruction. COMPARISON: No relevant prior studies available. FINDINGS: Brain: There is diffuse cerebral atrophy concordant with the patient's age. Chronic small vessel deep white matter ischemic disease is suggested by areas of patchy white matter low attenuation. No intracranial hemorrhage. No acute large territory CVA. No mass. No acute edema. No acute intracranial abnormality. Cerebral ventricles: No ventriculomegaly. Paranasal sinuses: Visualized sinuses are unremarkable. No fluid levels. Mastoid air cells: Visualized mastoid air cells are well aerated. Bones: Unremarkable. No acute fracture. Soft tissues: Unremarkable. IMPRESSION: 1. No acute intracranial abnormality. 2. Age-related atrophy and chronic small vessel deep white matter ischemia. Dictated and Authenticated by: Dayday Wilson MD. Ordering:HOWARD Reyes MD
--- NOTE | 2024-06-12 21:56 | DI.VRAD_ITS ---
PROCEDURE INFORMATION: Exam: XR Chest Exam date and time: 06/12/2024 9:05 PM Age: 79 years old Clinical indication: Shortness of breath; Patient HX: SOB, dizziness TECHNIQUE: Imaging protocol: Radiologic exam of the chest. Views: 1 view. COMPARISON: CR XR CHEST 2V PA LATERAL 09/01/2018 9:03 AM FINDINGS: Lungs: Unremarkable. No consolidation. Pleural spaces: Unremarkable. No pleural effusion. No pneumothorax. Heart/Mediastinum: Unremarkable. No cardiomegaly. Bones/joints: Unremarkable. IMPRESSION: 1. No acute findings. 2. No acute infiltrates or edema. 3. No acute pleural change. Dictated and Authenticated by: Dayday Wilson MD. Ordering:HOWARD Reyes MD
[2024-06-12 22:18] LABS: Bilirubin Negative (Negative); Blood Negative (Negative); Clarity Clear (Clear); Glucose Negative (Negative); Ketones 15 mg/dL (Negative); Leukocyte Esterase Trace (Negative); Nitrite Negative (Negative); Urobilinogen 0.2 mg/dL (Up to 0.2)
[2024-06-12 22:21] LABS: Bacteria Rare HPF (Negative); C & S Indicated? No; Casts Negative LPF (Negative); Crystals Negative HPF (Negative); Epithelial Cells Few HPF (Negative); Mucus Trace (Negative); RBC Negative HPF (0-2)
--- NOTE | 2024-06-12 22:41 | DI.VRAD_ITS ---
PROCEDURE INFORMATION: Exam: CTA Chest With Contrast Exam date and time: 06/12/2024 9:54 PM Age: 79 years old Clinical indication: Shortness of breath and other: SOB, elevated dimer TECHNIQUE: Imaging protocol: Computed tomographic angiography of the chest with contrast. Exam focused on the arteries. 3D rendering (Not supervised by radiologist): MIP and/or 3D reconstructed images were created by the technologist. Contrast material: OMNI 350; Contrast volume: 100 ml; Contrast route: INTRAVENOUS (IV); COMPARISON: CR XR CHEST 1V IN DI DEPT 06/12/2024 9:05 PM FINDINGS: Pulmonary arteries: Pulmonary arterial opacification is of good technical quality. No embolism. Aorta: Aortic arch atherosclerotic calcium. No aneurysm or dissection evident. Lungs: Bilateral diffuse interstitial ground-glass changes. This could represent developing interstitial edema or congestive heart failure. Differential diagnosis would include a bilateral interstitial pneumonitis. Pleural spaces: Unremarkable. No pneumothorax. No pleural effusion. Heart: Normal heart size. No pericardial effusion. No visible coronary artery atherosclerotic calcium. Lymph nodes: Unremarkable. No enlarged lymph nodes. Gallbladder and biliary ducts: Previous cholecystectomy. No biliary dilatation. Kidneys and ureters: Suggestion of a large right renal parapelvic cyst. This measures 4.9 cm. Partially visible. No further imaging follow-up is recommended based on current appearance. Intraperitoneal space: Limited view of the upper abdomen suggesting mild inflammation surrounding the pancreatic head extending towards the right upper quadrant. Possibility of pancreatitis. Please correlate with pancreatic serology. Bones/joints: Unremarkable. No acute fracture. Soft tissues: Unremarkable. IMPRESSION: 1. Interstitial edema versus interstitial pneumonitis bilaterally. 2. No pulmonary arterial embolism. 3. No pleural effusion. 4. Mild fatty inflammation in the upper abdomen adjacent to the pancreatic head and right upper quadrant. Please correlate clinically for possible pancreatitis. 5. Previous cholecystectomy. 6. Partial visualization of a right renal parapelvic cyst. No further imaging follow-up recommended. Dictated and Authenticated by: Dayday Wilson MD. Ordering:HOWARD Reyes MD
[2024-06-12 23:02] LABS: Lab Add On Test DONE
[2024-06-12 23:09] LABS: Lipase 35 U/L (16-77)
[2024-06-12 23:56] LABS: Troponin I 50 ng/L (< or =60)
[2024-06-13] VITALS: PULSE 71; RESP 14; O2SAT 92
[2024-06-13 00:01] VITALS: BP 128/51; PULSE 68; PULSE 71; RESP 14
[2024-06-13 00:10] VITALS: PULSE 69; RESP 13
== END 2024-06-13 00:44 | disposition home or self-care (01) ==
PROVIDERS: Registered Nurse Emergency; Emergency Provider Student in an Organized Health Care Education/Training Program; PCP Family Medicine
DX: R42 Dizziness and giddiness (principal); R06.02 Shortness of breath; K85.90 Acute pancreatitis without necrosis or infection, unspecified; I12.9 Hypertensive chronic kidney disease with stage 1 through stage 4 chronic kidney disease, or unspecified chronic kidney disease; N18.9 Chronic kidney disease, unspecified
CPT/HCPCS: 71275; 80053; 83690; 87637; 93005; 96360; 99285; 70450; 71045; 80320; 81003; 81015; 83735; 83880; 84484; 85025; 85379; 85610; 85730; 93010; 99284; J3490

== ENCOUNTER → 2024-07-02 13:27 | Outpatient (BNVA) | payer MEDICARE, SELFPAY | PROVIDERS: PCP Family Medicine; Referring Provider Family Medicine; Visit Provider Psychiatry & Neurology Neurology | DX: R55 Syncope and collapse (principal) | CPT/HCPCS: 99215 ==

== ENCOUNTER 2024-07-10 11:14 | Outpatient (CLI) | payer MEDICARE, SELFPAY | END 2024-07-10 11:15 | disposition home or self-care (01) | PROVIDERS: PCP Family Medicine; Visit Provider Family Medicine | DX: R42 Dizziness and giddiness (principal) | CPT/HCPCS: 93246 ==

== ENCOUNTER 2024-08-03 06:57 | Outpatient (CLI) | payer MEDICARE, SELFPAY ==
--- NOTE | 2024-08-03 12:41 | W.CARDEVENT ---
Date of service: 08/03/24 Time of Service: 12:41 Cardiac Event Recorder Referring Provider:: Le Thompson Indications:: Syncope Cardiac Event Note: This is a cardiac event monitor. Patient was monitored for 11 days and 22 hours. Rhythm throughout was sinus with an average heart rate of 67. Minimum was 48, maximum 107 There were rare ventricular ectopic beats There were rare atrial premature beats There were very rare self-limited atrial runs. These were generally 3-4 beats in duration There was no atrial fibrillation, no high-grade AV block, no pauses greater than 3 seconds No symptoms were reported
== END 2024-08-03 06:58 | disposition home or self-care (01) ==
LOC: CARDOPNVT 06:57
PROVIDERS: PCP Family Medicine; Referring Provider Family Medicine; Visit Provider Internal Medicine Cardiovascular Disease
DX: R55 Syncope and collapse (principal)
CPT/HCPCS: 93248

== ENCOUNTER 2024-08-24 14:06 | Outpatient (REF) | payer MEDICARE, SELFPAY ==
[2024-08-24 14:32] LABS: HCT 44.4 % (36.0-46.0); HGB 14.7 g/dL (11.2-15.7); MCH 29.4 pg (27.0-33.0); MCHC 33.1 % (32.0-36.0); MCV 89 fL (80-95); MPV 11.6 fL (8.0-11.0); Platelet Count 226 10^3/uL (130-400); RDW 14.1 % (11.7-14.6); RDW-SD 45.6 fL; WBC 6.85 10^3/uL (4.4-10.8)
[2024-08-24 14:56] LABS: Anion Gap 8.3 mmol/L (3-11); BUN 12 mg/dL (7-18); CO2 30.7 mmol/L (21.0-32.0); CREATININE 0.9 mg/dL (0.55-1.02); Calcium 9.5 mg/dL (8.5-10.1); Chloride 103 mmol/L (98-107); Estimated GFR 64.23 (mL/min/1.73m2); Glucose 80 mg/dL (74-106); Sodium 142 mmol/L (136-145); TSH (W/Ref FT4) 4.57 uIU/mL (0.36-3.74)
== END 2024-08-24 14:07 | disposition home or self-care (01) ==
LOC: NCHCN 14:06
PROVIDERS: PCP Family Medicine; Visit Provider Family Medicine
DX: I10 Essential (primary) hypertension (principal)
CPT/HCPCS: 80048; 85027; 84439; 84443

== ENCOUNTER 2024-09-28 09:40 | Outpatient (REF) | payer MEDICARE, SELFPAY ==
[2024-09-28 15:12] LABS: BUN 14 mg/dL (7-18); CREATININE 1.1 mg/dL (0.55-1.02); Calcium 9.2 mg/dL (8.5-10.1); Chloride 104 mmol/L (98-107); Estimated GFR 50.48 (mL/min/1.73m2); Glucose 81 mg/dL (74-106); Potassium 4.8 mmol/L (3.5-5.1); Sodium 141 mmol/L (136-145); TSH (W/Ref FT4) 1.47 uIU/mL (0.36-3.74)
== END 2024-09-28 09:41 | disposition home or self-care (01) ==
LOC: NCHCN 09:40
PROVIDERS: PCP Family Medicine; Visit Provider Family Medicine
DX: R73.03 Prediabetes (principal); I10 Essential (primary) hypertension
CPT/HCPCS: 80048; 83036; 84443